=== PATIENT | female | born 1950 | race Caucasian/White ===

== ENCOUNTER → 2019-03-30 10:00 | Outpatient (BNVA) | payer MEDICARE, OTHER, SELFPAY | PROVIDERS: Family Provider Nurse Practitioner Family; PCP Nurse Practitioner Family; Visit Provider Anesthesiology | DX: G89.29 Other chronic pain (principal); M54.17 Radiculopathy, lumbosacral region; M54.16 Radiculopathy, lumbar region; M47.812 Spondylosis without myelopathy or radiculopathy, cervical region; M47.819 Spondylosis without myelopathy or radiculopathy, site unspecified; M43.22 Fusion of spine, cervical region; M79.7 Fibromyalgia; M79.651 Pain in right thigh; M79.652 Pain in left thigh; G43.709 Chronic migraine without aura, not intractable, without status migrainosus | CPT/HCPCS: 99214 ==

== ENCOUNTER → 2019-09-23 13:37 | Outpatient (BNVA) | payer MEDICARE, OTHER, SELFPAY | PROVIDERS: Family Provider Nurse Practitioner Family; PCP Nurse Practitioner Family; Visit Provider Anesthesiology | DX: G89.29 Other chronic pain (principal); M54.6 Pain in thoracic spine; M54.16 Radiculopathy, lumbar region; M54.17 Radiculopathy, lumbosacral region; M54.41 Lumbago with sciatica, right side; M47.812 Spondylosis without myelopathy or radiculopathy, cervical region; M43.22 Fusion of spine, cervical region; M47.819 Spondylosis without myelopathy or radiculopathy, site unspecified; Z79.891 Long term (current) use of opiate analgesic | CPT/HCPCS: 99214 ==

== ENCOUNTER → 2019-10-07 09:32 | Outpatient (BNVA) | payer MEDICARE, OTHER, SELFPAY | PROVIDERS: Family Provider Nurse Practitioner Family; PCP Nurse Practitioner Family; Visit Provider Anesthesiology | DX: G89.29 Other chronic pain (principal); M54.16 Radiculopathy, lumbar region; M54.6 Pain in thoracic spine; M54.17 Radiculopathy, lumbosacral region | CPT/HCPCS: 62323; J1040; J3490 ==

== ENCOUNTER → 2019-11-25 13:36 | Outpatient (BNVA) | payer MEDICARE, OTHER, SELFPAY | PROVIDERS: Family Provider Nurse Practitioner Family; PCP Nurse Practitioner Family; Visit Provider Anesthesiology | DX: G89.29 Other chronic pain (principal); M54.41 Lumbago with sciatica, right side; M54.16 Radiculopathy, lumbar region; M54.17 Radiculopathy, lumbosacral region; M47.819 Spondylosis without myelopathy or radiculopathy, site unspecified; M54.6 Pain in thoracic spine; M47.812 Spondylosis without myelopathy or radiculopathy, cervical region; M43.22 Fusion of spine, cervical region; Z79.891 Long term (current) use of opiate analgesic | CPT/HCPCS: 99214 ==

== ENCOUNTER → 2019-12-16 10:40 | Outpatient (BNVA) | payer MEDICARE, OTHER, SELFPAY | PROVIDERS: Family Provider Nurse Practitioner Family; PCP Nurse Practitioner Family; Visit Provider Anesthesiology | DX: G89.29 Other chronic pain (principal); M54.16 Radiculopathy, lumbar region; M54.17 Radiculopathy, lumbosacral region; Z79.891 Long term (current) use of opiate analgesic | CPT/HCPCS: 62323; J1040; J3490 ==

== ENCOUNTER → 2020-02-02 14:26 | Outpatient (BNVA) | payer MEDICARE, OTHER, SELFPAY | PROVIDERS: Family Provider Nurse Practitioner Family; PCP Nurse Practitioner Family; Visit Provider Anesthesiology | DX: G89.29 Other chronic pain (principal); M54.41 Lumbago with sciatica, right side; M54.6 Pain in thoracic spine; M47.812 Spondylosis without myelopathy or radiculopathy, cervical region; M54.17 Radiculopathy, lumbosacral region; M43.22 Fusion of spine, cervical region; M54.16 Radiculopathy, lumbar region; M47.819 Spondylosis without myelopathy or radiculopathy, site unspecified; Z79.891 Long term (current) use of opiate analgesic | CPT/HCPCS: 99214 ==

== ENCOUNTER → 2020-03-27 13:36 | Outpatient (BNVA) | payer MEDICARE, OTHER, SELFPAY | PROVIDERS: Family Provider Nurse Practitioner Family; PCP Nurse Practitioner Family; Visit Provider Internal Medicine Rheumatology | DX: M19.90 Unspecified osteoarthritis, unspecified site (principal); Z79.899 Other long term (current) drug therapy; Z11.1 Encounter for screening for respiratory tuberculosis; Z11.59 Encounter for screening for other viral diseases; M54.89 Other dorsalgia; M79.7 Fibromyalgia; E11.9 Type 2 diabetes mellitus without complications; M46.1 Sacroiliitis, not elsewhere classified; M19.072 Primary osteoarthritis, left ankle and foot; M77.31 Calcaneal spur, right foot; M45.9 Ankylosing spondylitis of unspecified sites in spine | CPT/HCPCS: 36415; 72170; 73130; 73630; 80076; 82306; 82565; 85025; 85651; 86140; 86480; 86704; 86803; 86812; 87340; 99214 ==

== ENCOUNTER 2020-03-27 15:51 | Outpatient (CLI) | payer MEDICARE, OTHER, SELFPAY ==
--- NOTE | 2020-03-27 16:02 | XRR_ITS ---
PROCEDURE INFORMATION: Exam: XR Right Hand Exam date and time: 03/27/2020 4:04 PM Age: 69 years old Clinical indication: Condition or disease; Osteoarthritis; Other: Not specified; Hand; Bilateral; Additional info: M19.90 - unspecified osteoarthritis, unspecified site TECHNIQUE: Imaging protocol: XR Right hand. Views: 3 or more views. COMPARISON: No relevant prior studies available. FINDINGS: Bones/joints: Mild narrowing and osteophyte formation of the interphalangeal joints, and of the 1st carpometacarpal joint. This is consistent with primary osteoarthritis. No fracture or other acute osseous abnormality. Soft tissues: The soft tissues appear unremarkable. XR/XR hand RT min 3V* [id number] IMPRESSION: Findings are consistent with primary osteoarthritis of the interphalangeal joints and the 1st carpometacarpal joint.
--- NOTE | 2020-03-27 16:02 | XRR_ITS ---
PROCEDURE INFORMATION: Exam: XR Left Foot Complete Exam date and time: 03/27/2020 4:04 PM Age: 69 years old Clinical indication: Condition or disease; Ankle and foot; Type of osteoarthritis not specified; Bilateral; Additional info: M19.90 - unspecified osteoarthritis, unspecified site TECHNIQUE: Imaging protocol: XR Left foot. Views: 3 or more views. COMPARISON: No relevant prior studies available. FINDINGS: Bones/joints: No fracture or other acute osseous abnormality. Mild narrowing and osteophyte formation of the 1st metatarsophalangeal joint, indicating mild primary osteoarthritis. The joints are otherwise unremarkable. Soft tissues: The soft tissues appear unremarkable. XR/XR foot LT min 3V* [id number] IMPRESSION: 1. Mild primary osteoarthritis of the 1st metatarsophalangeal joint. 2. The examination is otherwise unremarkable.
--- NOTE | 2020-03-27 16:02 | XRR_ITS ---
PROCEDURE INFORMATION: Exam: XR Left Hand Exam date and time: 03/27/2020 4:04 PM Age: 69 years old Clinical indication: Condition or disease; Osteoarthritis; Other: Not specified; Hand; Bilateral; Additional info: M19.90 - unspecified osteoarthritis, unspecified site TECHNIQUE: Imaging protocol: XR Left hand. Views: 3 or more views. COMPARISON: No relevant prior studies available. FINDINGS: Bones/joints: Mild narrowing and osteophyte formation of the interphalangeal joints, and of the 1st carpometacarpal joint. This is consistent with primary osteoarthritis. No fracture or other acute osseous abnormality. Soft tissues: The soft tissues appear unremarkable. XR/XR hand LT min 3V* [id number] IMPRESSION: Findings are consistent with primary osteoarthritis of the interphalangeal joints and the 1st carpometacarpal joint.
--- NOTE | 2020-03-27 16:02 | XRR_ITS ---
PROCEDURE INFORMATION: Exam: XR Pelvis Exam date and time: 03/27/2020 4:04 PM Age: 69 years old Clinical indication: Condition or disease; Other: Osteoarthritis; Additional info: M19.90 - unspecified osteoarthritis, unspecified site TECHNIQUE: Imaging protocol: XR pelvis. Views: 1 or 2 view. COMPARISON: CR Hip 2-3v RIGHT wwo Pelv* [id number] 12/31/2018 3:09 PM FINDINGS: Bones/joints: Mild narrowing and sclerosis of the right SI joint. The left SI joint is unremarkable. Mild osteoarthritis of the right SI joint. The left SI joint appears unaffected. Bilateral hip joints are symmetric. No joint narrowing or osteophyte formation noted. The symphysis pubis is unremarkable. No fracture or other acute osseous abnormality. Soft tissues: The soft tissues appear unremarkable. XR/XR pelvis 1-2V* [id number] IMPRESSION: 1. Mild osteoarthritis of the right SI joint. The left SI joint appears unaffected. 2. The examination is otherwise unremarkable.
--- NOTE | 2020-03-27 16:02 | XRR_ITS ---
PROCEDURE INFORMATION: Exam: XR Right Foot Complete Exam date and time: 03/27/2020 4:04 PM Age: 69 years old Clinical indication: Condition or disease; Ankle and foot; Type of osteoarthritis not specified; Bilateral; Additional info: M19.90 - unspecified osteoarthritis, unspecified site TECHNIQUE: Imaging protocol: XR Right foot. Views: 3 or more views. COMPARISON: No relevant prior studies available. FINDINGS: Bones/joints: 5 mm plantar calcaneal spur. Small calcified enthesophyte in the distal Achilles tendon. No fracture or other acute osseous abnormality. No acute or chronic joint abnormality demonstrated. Impression Soft tissues: The soft tissues appear unremarkable. XR/XR foot RT min 3V* [id number] IMPRESSION: 1. 5 mm plantar calcaneal spur. 2. Small calcified enthesophyte in the distal Achilles tendon. 3. No significant abnormality of the joints.
[2020-03-27 16:54] LABS: Basophils # 0.1 10^3/uL (0.0-0.1); Basophils % 1.2 %; Eosinophils # 0.1 10^3/uL (0.0-0.8); Eosinophils % 1.8 %; Hematocrit 35.5 % (37.0-47.0); Hemoglobin 11.3 g/dL (11.5-15.3); Lymphocytes # 2.3 10^3/uL (0.8-4.8); Lymphocytes % 31.7 %; Mean Corpuscular HGB Conc 31.8 g/dL (30.0-36.0); Mean Corpuscular Hemoglobin 30.1 pg (28.0-34.0); Mean Corpuscular Volume 94.7 fL (81-99); Mean Platelet Volume 9.9 fL (7.4-10.4); Monocytes # 0.7 10^3/uL (0.2-0.9); Monocytes % 9.5 %; Neutrophils # 4.07 10^3/uL (1.8-7.7); Neutrophils % 55.5 %; Nucleated Red Blood Cells % 0 %; Platelet Count 349 10^3/cmm (130-400); Red Blood Count 3.75 10^6/uL (4.1-5.3); Red Cell Distribution Width 14.5 % (12.1-15.1); White Blood Count 7.3 10^3/uL (4.0-10.0)
[2020-03-27 17:51] LABS: Hepatitis B Core AB, Total Non-Reactive (Nonreactive); Hepatitis B Surface Antigen Non-Reactive (Nonreactive); Hepatitis C Virus Antibody Non-Reactive (Nonreactive)
[2020-03-27 17:55] LABS: Erythrocyte Sedimentation Rate 45 mm/hr (0-15)
[2020-03-27 21:10] LABS: Alanine Aminotransferase 24 U/L (0-33); Albumin Level 4.1 g/dL (3.5-5.2); Alkaline Phosphatase 67 IU/L (35-105); Aspartate Amino Transferase 17 U/L (0-32); C Reactive Protein 8.9 mg/L (0.0-4.9); Globulin 2.6 g/dL (1.3-4.6); Total Bilirubin 0.2 mg/dL (0.15-1.2); Total Protein 6.7 g/dL (6.6-8.7)
[2020-03-28 01:23] LABS: 25 Hydroxy Vitamin D 31 ng/mL (30-100)
[2020-03-28 15:38] LABS: Cyclic Citrullinated Peptide <16 UNITS
[2020-03-29 14:54] LABS: Quantiferon Mitogen >10.00 IU/mL; Quantiferon Nil 0.11 IU/mL; Quantiferon Plus TB1 <0.00 IU/mL; Quantiferon Plus TB2 <0.00 IU/mL; Quantiferon TB Gold NEGATIVE (NEGATIVE)
[2020-03-30 17:23] LABS: HLA-B27 POSITIVE (NEGATIVE)
== END 2020-03-27 15:52 | disposition home or self-care (01) ==
LOC: RAD 15:57
PROVIDERS: Family Provider Nurse Practitioner Family; PCP Nurse Practitioner Family; Visit Provider Internal Medicine Rheumatology
DX: Z79.899 Other long term (current) drug therapy (principal); M46.1 Sacroiliitis, not elsewhere classified; M19.072 Primary osteoarthritis, left ankle and foot; M77.31 Calcaneal spur, right foot
CPT/HCPCS: 36415; 72170; 73130; 73630; 80076; 82306; 82565; 85025; 85651; 86140; 86480; 86704; 86803; 86812; 87340

== ENCOUNTER → 2020-03-31 14:09 | Outpatient (BNVA) | payer MEDICARE, OTHER, SELFPAY | PROVIDERS: Family Provider Nurse Practitioner Family; PCP Nurse Practitioner Family; Visit Provider Anesthesiology | DX: G89.29 Other chronic pain (principal); M54.6 Pain in thoracic spine; M54.17 Radiculopathy, lumbosacral region; M54.16 Radiculopathy, lumbar region; M47.819 Spondylosis without myelopathy or radiculopathy, site unspecified; Z79.891 Long term (current) use of opiate analgesic | CPT/HCPCS: 99213 ==

== ENCOUNTER → 2020-04-20 14:23 | Outpatient (BNVA) | payer MEDICARE, OTHER, SELFPAY | PROVIDERS: Family Provider Nurse Practitioner Family; PCP Nurse Practitioner Family; Visit Provider Internal Medicine Rheumatology | DX: M45.9 Ankylosing spondylitis of unspecified sites in spine (principal); Z15.89 Genetic susceptibility to other disease; M19.90 Unspecified osteoarthritis, unspecified site; M54.89 Other dorsalgia; M46.1 Sacroiliitis, not elsewhere classified; E11.9 Type 2 diabetes mellitus without complications; Z79.84 Long term (current) use of oral hypoglycemic drugs; Z79.899 Other long term (current) drug therapy | CPT/HCPCS: 99214 ==

== ENCOUNTER 2020-05-11 16:23 | Outpatient (CLI) | payer MEDICARE, OTHER, SELFPAY ==
--- NOTE | 2020-05-11 16:38 | MR_ITS ---
WS: [id number] INDICATION: Sacroiliitis TECHNIQUE: MR of the sacrum without gadolinium enhancement. Sagittal T2, coronal T2, coronal STIR axi al T1 and T2 sagittal T1 fat sat FINDINGS: MR of the sacrum without gadolinium enhancement. Normal bone marrow signal in the lower lum bar spine and sacrum. Grade 1 anterolisthesis L4 on L5 is stable. Normal bone marrow signal in the sa rip and sacral ala bilaterally. No insufficiency fractures. Mild degenerative arthritis both sacroil iac joints right greater than left. No periarticular edema. No evidence of acute sacroiliitis. Advanced facet arthropathy in the lower lumbar spine. Normal visualized exiting sacral nerve roots. P artially visualized hips demonstrate normal bone marrow signal. Mild to moderate degenerative arthrit is both hips with joint space narrowing. Normal visualized soft tissues. MR/MR sacrum wo con* [id number] IMPRESSION: 1. Normal bone marrow signal in the lower lumbar spine and sacrum. 2. Mild degenerative arthritis right greater than left sacroiliac joints. No p eriarticular edema. 3. No evidence of acute sacroiliitis. 4. Stable grade 1 anterolisthesis L4 on L5. 5. A few incidental Tarlov cysts in the sacrum. 6. Normal sacrococcygeal junction.
== END 2020-05-11 16:24 | disposition home or self-care (01) ==
LOC: RADSHAW 16:27
PROVIDERS: PCP Nurse Practitioner Family; Visit Provider Internal Medicine Rheumatology
DX: Z15.89 Genetic susceptibility to other disease (principal); M46.1 Sacroiliitis, not elsewhere classified; G96.191 Perineural cyst; M47.898 Other spondylosis, sacral and sacrococcygeal region
CPT/HCPCS: 72148

== ENCOUNTER → 2020-05-18 11:00 | Outpatient (BNVA) | payer MEDICARE, OTHER, SELFPAY | PROVIDERS: PCP Nurse Practitioner Family; Visit Provider Surgery | DX: D64.9 Anemia, unspecified (principal); Z86.010 Personal history of colon polyps; Z11.52 Encounter for screening for COVID-19 | CPT/HCPCS: 87635 ==

== ENCOUNTER 2020-05-23 07:16 | Day surgery (SDC) | payer MEDICARE, OTHER, SELFPAY ==
[2020-05-19 13:15] VITALS: BMI 37.1
[2020-05-23 07:33] VITALS: BP 186/99; PULSE 81; RESP 18; TEMP 36.9; O2SAT 98
--- NOTE | 2020-05-23 07:37 | ANES.PREANE2 ---
Pre-Anesthetic Assessment Pre-Anesthetic Assessment: Height/Weight: Height 1.57 m Weight 92.079 kg Temp Pulse Resp BP Pulse Ox 98.4 F 81 18 186/99 98 05/23/20 07:33 05/23/20 07:33 05/23/20 07:33 05/23/20 07:33 05/23/20 07:33 Preop Diagnosis: panendoscopy Proposed Procedure: Operation Date: 05/23/20 08:30 Proposed Procedures p EGD/colon 42763 41213 D64.9 Z86.010(Not Applicable) - Gregorio Lynn MD s Colonoscopy(Not Applicable) - Gregorio Lynn MD Was Beta Kristina taken within 24 hours: Yes Last intake: Intake Last Liquid Date 05/22/20 Last Liquid Time 17:00 Last Solid Date 05/21/20 Last Solid Time 20:00 Social: Social History: No alcohol and No tobacco Exam: Pre-Anes Outpt Exam: alert, oriented x 3, clear to auscultation bilaterally and regular rate & rhythm Airway: Submandibular: WNL Cervical ROM: WNL MP: 2 Dentition: False Pulmonary: Pulmonary: Asthma CV/HEM: CV/HEM: CAD and HTN : : None reported Hepatic: Hepatic: None reported GI: GI: GERD Metabolic: Metabolic: None reported Musc/skel: Musc/skel: None reported Neuropsych: Comments: Migraine JAMISON's Anesthetic Plan: ASA status: 3 Anesthesia: MAC PFSH Anesthesia PFSH: Medical History (Updated 05/09/20 @ 17:27 by Gregorio Lynn MD) Ankylosing spondylitis Back pain, lumbosacral CAD (coronary artery disease) Chronic migraine Chronic radicular low back pain Depression Diabetes mellitus Dyslipidemia Essential hypertension Facet joint disease of cervical region Fibromyalgia Fusion of spine, cervical region Hip pain, right History of acute anterior wall myocardial infarction HLA B27 (HLA B27 positive) Inflammatory arthritis Joint instability Lumbosacral radiculopathy Sacroiliitis Surgical History (Updated 05/09/20 @ 14:42 by Gregorio Lynn MD) H/O esophagogastroduodenoscopy History of colonoscopy (~2012) Presence of stent in anterior descending branch of left coronary artery S/p bilateral carpal tunnel release S/P cervical spinal fusion c4-c5, c5-c6-08/29/2009 S/P cholecystectomy S/P discectomy S/P hysterectomy Family History Father Cancer Hypertension Diabetes Sister Cancer Social History Smoking and tobacco status: never smoked Second hand smoke exposure: No Alcohol intake: never Marital status: / History of recent travel: No Data Anesthesia Cardiac Studies: No Data to Display
[2020-05-23] MEDS: sodium chloride 0.9% 1,000 ML 30 ML IV (07:56)
[2020-05-23 08:06] LABS: Glucose Point of Care 166 mg/dL (70-110)
--- NOTE | 2020-05-23 08:54 | W.PM.OPSUD ---
Surgery/Procedure H&P Update DATE OF PROCEDURE: May 23, 2020 DATE H&P PERFORMED: 05/09/20 H&P UPDATE INFORMATION: I have reviewed H&P completed within last 30 days, I have examined patient prior to procedure and No changes to prior documentation PREOP DIAGNOSIS: panendoscopy PLANNED PROCEDURE: Operation Date: 05/23/20 08:30 Proposed Procedures p EGD/colon 12645 05934 D64.9 Z86.010(Not Applicable) - Gregorio Lynn MD s Colonoscopy(Not Applicable) - Gregorio Lynn MD
[2020-05-23 09:34] VITALS: BP 93/57; PULSE 74; RESP 18; TEMP 36.3; O2SAT 94
[2020-05-23 09:52] VITALS: BP 131/81; PULSE 74; RESP 18; TEMP 36.2; O2SAT 100
--- NOTE | 2020-05-23 10:23 | P.PCN_ITS ---
PACU note Post-Anesthesia Exam: awake Disposition: discharged
--- NOTE | 2020-05-23 10:23 | PM.PACU ---
PACU note Post-Anesthesia Exam: awake Disposition: discharged
== END 2020-05-23 10:22 | disposition home or self-care (01) ==
PROVIDERS: PCP Nurse Practitioner Family; Visit Provider Surgery
PROC: 0DJ08ZZ Inspection of Upper Intestinal Tract, Via Natural or Artificial Opening Endoscopic (ICD-10-PCS; CPT 43235; principal; 2020-05-23 08:30)
PROC: 0DJD8ZZ Inspection of Lower Intestinal Tract, Via Natural or Artificial Opening Endoscopic (ICD-10-PCS; CPT 45378; 2020-05-23 08:30)
DX: D50.9 Iron deficiency anemia, unspecified (principal); D12.2 Benign neoplasm of ascending colon; D12.4 Benign neoplasm of descending colon; D12.3 Benign neoplasm of transverse colon; D12.0 Benign neoplasm of cecum; K57.30 Diverticulosis of large intestine without perforation or abscess without bleeding; K44.9 Diaphragmatic hernia without obstruction or gangrene; K29.70 Gastritis, unspecified, without bleeding; K20.90 Esophagitis, unspecified without bleeding; K21.9 Gastro-esophageal reflux disease without esophagitis; R11.0 Nausea; I25.10 Atherosclerotic heart disease of native coronary artery without angina pectoris; E11.9 Type 2 diabetes mellitus without complications; E78.5 Hyperlipidemia, unspecified; I10 Essential (primary) hypertension; M79.7 Fibromyalgia; Z98.1 Arthrodesis status; Z83.3 Family history of diabetes mellitus; Z82.49 Family history of ischemic heart disease and other diseases of the circulatory system
CPT/HCPCS: 36416; 43235; 45380; 45385; 82962; 88305; 96360; 96361; J2704; J3490; J7030

== ENCOUNTER → 2020-05-24 13:54 | Outpatient (BNVA) | payer MEDICARE, OTHER, SELFPAY | PROVIDERS: PCP Nurse Practitioner Family; Visit Provider Nurse Practitioner | DX: G89.29 Other chronic pain (principal); M54.89 Other dorsalgia; M79.604 Pain in right leg; M79.605 Pain in left leg; M47.812 Spondylosis without myelopathy or radiculopathy, cervical region; M54.17 Radiculopathy, lumbosacral region; M79.7 Fibromyalgia; M54.16 Radiculopathy, lumbar region; M43.22 Fusion of spine, cervical region; M47.819 Spondylosis without myelopathy or radiculopathy, site unspecified; Z79.891 Long term (current) use of opiate analgesic | CPT/HCPCS: 99212 ==

== ENCOUNTER → 2020-05-25 10:18 | Outpatient (BNVA) | payer MEDICARE, OTHER, SELFPAY | PROVIDERS: PCP Nurse Practitioner Family; Visit Provider Internal Medicine Rheumatology | DX: M45.9 Ankylosing spondylitis of unspecified sites in spine (principal); Z79.899 Other long term (current) drug therapy | CPT/HCPCS: 36415; 80076; 82565; 85025; 86140 ==

== ENCOUNTER → 2020-06-22 13:59 | Outpatient (BNVA) | payer MEDICARE, OTHER, SELFPAY | PROVIDERS: PCP Nurse Practitioner Family; Visit Provider Internal Medicine Rheumatology | DX: M19.90 Unspecified osteoarthritis, unspecified site (principal); Z79.899 Other long term (current) drug therapy; Z15.89 Genetic susceptibility to other disease; M45.9 Ankylosing spondylitis of unspecified sites in spine; M46.1 Sacroiliitis, not elsewhere classified; M54.89 Other dorsalgia; E11.9 Type 2 diabetes mellitus without complications | CPT/HCPCS: 99214 ==

== ENCOUNTER → 2020-07-26 13:19 | Outpatient (BNVA) | payer MEDICARE, OTHER, SELFPAY | PROVIDERS: PCP Nurse Practitioner Family; Visit Provider Nurse Practitioner | DX: M54.89 Other dorsalgia (principal); M54.17 Radiculopathy, lumbosacral region; M47.812 Spondylosis without myelopathy or radiculopathy, cervical region; M79.604 Pain in right leg; M79.605 Pain in left leg; M45.9 Ankylosing spondylitis of unspecified sites in spine; M19.90 Unspecified osteoarthritis, unspecified site; M79.7 Fibromyalgia; Z79.891 Long term (current) use of opiate analgesic | CPT/HCPCS: 99213 ==

== ENCOUNTER → 2020-08-17 09:39 | Outpatient (BNVA) | payer MEDICARE, OTHER, SELFPAY | PROVIDERS: PCP Nurse Practitioner Family; Visit Provider Anesthesiology | DX: G89.29 Other chronic pain (principal); M54.16 Radiculopathy, lumbar region; M54.17 Radiculopathy, lumbosacral region; E11.9 Type 2 diabetes mellitus without complications; M54.89 Other dorsalgia | CPT/HCPCS: 62323; J1040; J3490 ==

== ENCOUNTER → 2020-10-18 14:27 | Outpatient (BNVA) | payer MEDICARE, OTHER, SELFPAY | PROVIDERS: PCP Nurse Practitioner Family; Visit Provider Internal Medicine Rheumatology | DX: M45.9 Ankylosing spondylitis of unspecified sites in spine (principal); Z15.89 Genetic susceptibility to other disease; Z79.899 Other long term (current) drug therapy; M54.89 Other dorsalgia; M19.90 Unspecified osteoarthritis, unspecified site; E11.9 Type 2 diabetes mellitus without complications; Z98.890 Other specified postprocedural states; Z71.89 Other specified counseling | CPT/HCPCS: 99214 ==

== ENCOUNTER → 2020-10-25 13:37 | Outpatient (BNVA) | payer MEDICARE, OTHER, SELFPAY | PROVIDERS: PCP Nurse Practitioner Family; Visit Provider Nurse Practitioner | DX: G89.29 Other chronic pain (principal); M54.89 Other dorsalgia; M54.16 Radiculopathy, lumbar region; M54.17 Radiculopathy, lumbosacral region; M79.604 Pain in right leg; M79.605 Pain in left leg; M47.812 Spondylosis without myelopathy or radiculopathy, cervical region; M43.22 Fusion of spine, cervical region; M45.9 Ankylosing spondylitis of unspecified sites in spine; M19.90 Unspecified osteoarthritis, unspecified site; G43.709 Chronic migraine without aura, not intractable, without status migrainosus; Z79.891 Long term (current) use of opiate analgesic | CPT/HCPCS: 80076; 82565; 85025; 86140; 99213 ==

== ENCOUNTER 2020-10-27 13:21 | Outpatient (CLI) | payer MEDICARE, OTHER, SELFPAY ==
--- NOTE | 2020-10-27 13:30 | USCV_ITS ---
Kelin Mcmanus Age: 69 Gender: F : 1950 Exam Date: 10/27/2020 13:48 Ordering Phys: Modesto Drake M.D ([email or web address]) Technologist: Deidra Sheppard Exam Location: [facility] [place] Indication: CHEST PAIN BP: 138 / 86 HR: 88 Rhythm: Sinus Technical Quality: Adequate MEASUREMENTS (Male / Female) Normal Values 2D ECHO LV Diastolic Diameter PLAX 4.3 cm 4.2 - 5.9 / 3.9 - 5.3 cm LV Systolic Diameter PLAX 3.0 cm LV Chamber Size 3.0 cm IVS Diastolic Thickness 1.2 cm 0.6 - 1.0 / 0.6 - 0.9 cm IVS Systolic Thickness 1.5 cm LVPW Diastolic Thickness 1.5 cm 0.6 - 1.0 / 0.6 - 0.9 cm LVPW Systolic Thickness 2.0 cm RV Chamber Size 2.4 cm LVOT Diameter 2.1 cm LV Ejection Fraction 2D Teich 58.0 % LV Ejection Fraction MOD 2C 81.0 % LV Ejection Fraction 2C AL 82.1 % LA Diameter 3.5 cm LA Width 3.1 cm LA Height 3.3 cm RA Width 2.2 cm RA Height 4.0 cm Aorta at Sinotubular Diameter 2.9 cm M-MODE Aortic Annulus Diameter 3.3 cm LA Ao Ratio MM 1.2 MV E Point Septal Separation 0.2 cm DOPPLER AV Peak Velocity 211.0 cm/s LVOT Peak Velocity 101.0 cm/s AV Area Cont Eq vti 2.0 cm squared AV Area Cont Eq pk 1.7 cm squared MV Area PHT 5.0 cm squared Mitral E to A Ratio 0.7 MV E' Velocity 53.0 cm/s Mitral E to MV E' Ratio 11.5 Mitral E to LV E' Lateral Ratio 10.8 Mitral E to LV E' Septal Ratio 12.2 TR Peak Velocity 103.3 cm/s TR Peak Gradient 4.3 mmHg TR Mean Velocity 91.2 cm/s TR Mean Gradient 3.3 mmHg TR Velocity Time Integral 26.6 cm TV Peak E Velocity 65.0 cm/s Right Atrial Pressure 3.0 mmHg Pulmonary Artery Systolic Pressu 7.3 mmHg PV Peak Velocity 97.0 cm/s RV Acceleration Time 0.1 s RV Ejection Time 0.4 s RV AcT/ET 0.2 FINDINGS Left Ventricle Normal left ventricular size. LV systolic function is normal with EF of 60-65%. No regional wall motion abnormalities. Grade 1 diastolic dysfunction Right Ventricle The right ventricle is normal in size and function. Right ventricular hypertrophy is noted Right Atrium The right atrium is normal in size. Left Atrium The left atrium is normal in size. Mitral Valve Mitral valve is thickened and calcified without significant stenosis or prolapse. There is trace mitral regurgitation. Aortic Valve Grossly normal without significant sclerosis or stenosis. There is no aortic regurgitation. Tricuspid Valve Structurally normal tricuspid valve without significant stenosis or regurgitation. Insufficient TR jet to calculate RVSP Pulmonic Valve Structurally normal pulmonic valve without significant stenosis. There is no pulmonic regurgitation. Pericardium Normal pericardium without effusion. Aorta Normal ascending aorta dimension. CONCLUSIONS LV systolic function is normal with EF of 60-65% Grade 1 diastolic dysfunction Trace mitral regurgitation Compared to prior echocardiogram from 09/2015, no significant changes are noted Modesto Drake MD (Electronically Signed) Final Date: 12 November 2020 19:14 S
== END 2020-10-27 13:22 | disposition home or self-care (01) ==
LOC: US 13:23
PROVIDERS: PCP Nurse Practitioner Family; Visit Provider Internal Medicine
DX: R07.9 Chest pain, unspecified (principal); I51.81 Takotsubo syndrome; I34.0 Nonrheumatic mitral (valve) insufficiency
CPT/HCPCS: 93306

== ENCOUNTER 2020-11-16 08:22 | Outpatient (CLI) | payer MEDICARE, OTHER, SELFPAY ==
[2020-11-16 08:39] VITALS: BMI 35.6
--- NOTE | 2020-11-16 08:39 | ECG_ITS ---
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 Interpretive Statements NAME OF STUDY: LEXISCAN SESTAMIBI STRESS TEST INDICATION: [Chest Pain, ] Procedure: At the baseline, the blood pressure was 148/87mmHg with a heart rate of 87 bpm. The electrocardiogram showed normal sinus rhythm, normal axis with normal ST and T's. The Lexiscan was infused over a period of 20 seconds. A total of 0.4 mg of Lexiscan was infused. The stress phase was continued for a total of 5 minutes. Heart rate was at the end of stress phase was 94 bpm and a blood pressure of 144/78 mmHg. The EKG at the peak infusion revealed since normal sinus rhythm with no significant ST-T wave changes. Sestamibi was injected 20 seconds after the Lexiscan infusion. Blood pressure at the end of recovery phase was 148/81 mmHg with a heart rate of 89 bpm. Conclusion: 1. Normal EKG response to Lexiscan infusion 2. No Lexiscan induced chest pain or cardiac arrhythmia. 3. Normal blood pressure and heart rate response. 4. Sestamibi/sestamibi perfusion scan pending; see separate report. Electronically Signed On 11-26-2020 12:19:18 CDT by Modesto Drake M.D. [id number]
--- NOTE | 2020-11-16 08:40 | NMCV_ITS ---
NM bud perf SPECT r/s* [id number] Kelin Mcmanus Age: 70 Gender: F : 1950 Exam Date: 11/16/2020 09:37 Ordering Phys: Modesto Drake M.D ([email or web address]) Technologist: REZA Garcia Exam Location: [facility] Indications: CHEST PAIN STRESS TEST Please see separate stress test report in [facility] for full findings IMAGE PROTOCOL Rest/Stress 1 Lexiscan Day Radiopharmaceutical Dose (mCi) Administration Site Administered by Rest: Tc-99m 10.7 IV REZA Grimaldo Sestamibi Stress:Tc-99m 32.4 IV REZA Grimaldo Sestamibi Rest: 16-Nov-2020 60 Discovery 630 Stress: 16-Nov-2020 30 Discovery 630 0.4mg Lexiscan. Images obtained in supine and prone position. SPECT RESULTS Technical Quality: Excellent Raw Data Analysis: Normal Image Corrections: No attenuation or motion correction applied Summed Stress Score: 2 Summed Rest Score: 4 Summed Difference Score: 0 PERFUSION FINDINGS There is a small sized, fixed perfusion defect in the apical wall. This likely represents prior infarct. FUNCTIONAL RESULTS (calculated via Gated SPECT) Stress Image LV EF (%): 72 Stress EDV (mL):81 TID: 1.14 Stress ESV (mL):23 FUNCTIONAL FINDINGS: There is normal left ventricular systolic function. IMPRESSIONS 1. Abnormal myocardial perfusion imaging with prior infarct noted in the apical wall. No evidence of ishchemia is noted 2. LV systolic function is normal Modesto Drake MD (Electronically Signed) Final Date: 18 November 2020 15:07 S
[2020-11-16 10:22] VITALS: BP 135/84; PULSE 91
== END 2020-11-16 08:23 | disposition home or self-care (01) ==
PROVIDERS: PCP Nurse Practitioner Family; Visit Provider Internal Medicine
DX: R07.9 Chest pain, unspecified (principal)
CPT/HCPCS: 78452; 93017; A9500

== ENCOUNTER → 2020-12-19 13:06 | Outpatient (BNVA) | payer MEDICARE, OTHER, SELFPAY | PROVIDERS: PCP Nurse Practitioner Family; Visit Provider Nurse Practitioner | DX: G89.29 Other chronic pain (principal); M54.40 Lumbago with sciatica, unspecified side; M54.16 Radiculopathy, lumbar region; M54.17 Radiculopathy, lumbosacral region; M54.89 Other dorsalgia; M47.812 Spondylosis without myelopathy or radiculopathy, cervical region; M43.22 Fusion of spine, cervical region; M45.9 Ankylosing spondylitis of unspecified sites in spine; Z79.891 Long term (current) use of opiate analgesic | CPT/HCPCS: 99214 ==

== ENCOUNTER → 2021-01-04 09:49 | Outpatient (BNVA) | payer MEDICARE, OTHER, SELFPAY | PROVIDERS: PCP Nurse Practitioner Family; Visit Provider Anesthesiology | DX: G89.29 Other chronic pain (principal); M51.16 Intervertebral disc disorders with radiculopathy, lumbar region; M54.89 Other dorsalgia | CPT/HCPCS: 62323; J1040; J3490 ==

== ENCOUNTER → 2021-04-04 08:43 | Outpatient (BNVA) | payer MEDICARE, OTHER, SELFPAY | PROVIDERS: PCP Nurse Practitioner Family; Visit Provider Anesthesiology | DX: G89.29 Other chronic pain (principal); M54.16 Radiculopathy, lumbar region; M54.17 Radiculopathy, lumbosacral region; M47.819 Spondylosis without myelopathy or radiculopathy, site unspecified; M79.604 Pain in right leg; M79.605 Pain in left leg; M43.22 Fusion of spine, cervical region; M47.812 Spondylosis without myelopathy or radiculopathy, cervical region; M54.6 Pain in thoracic spine; M45.9 Ankylosing spondylitis of unspecified sites in spine; Z15.89 Genetic susceptibility to other disease; Z79.899 Other long term (current) drug therapy; Z79.891 Long term (current) use of opiate analgesic | CPT/HCPCS: 99214 ==

== ENCOUNTER → 2021-05-03 13:47 | Outpatient (BNVA) | payer MEDICARE, OTHER, SELFPAY | PROVIDERS: PCP Nurse Practitioner Family; Visit Provider Anesthesiology Pain Medicine | DX: M79.18 Myalgia, other site (principal); M47.812 Spondylosis without myelopathy or radiculopathy, cervical region; M53.3 Sacrococcygeal disorders, not elsewhere classified; M19.90 Unspecified osteoarthritis, unspecified site; M45.9 Ankylosing spondylitis of unspecified sites in spine; M54.6 Pain in thoracic spine; Z15.89 Genetic susceptibility to other disease; Z79.899 Other long term (current) drug therapy; Z79.891 Long term (current) use of opiate analgesic | CPT/HCPCS: 20553; 99205; J1030; J3490 ==

== ENCOUNTER → 2021-05-21 12:57 | Outpatient (BNVA) | payer MEDICARE, OTHER, SELFPAY | PROVIDERS: PCP Nurse Practitioner Family; Visit Provider Internal Medicine Rheumatology | DX: M45.9 Ankylosing spondylitis of unspecified sites in spine (principal); Z15.89 Genetic susceptibility to other disease; M19.90 Unspecified osteoarthritis, unspecified site; E11.9 Type 2 diabetes mellitus without complications; Z79.899 Other long term (current) drug therapy; Z71.89 Other specified counseling | CPT/HCPCS: 99214 ==

== ENCOUNTER → 2021-06-07 10:19 | Outpatient (BNVA) | payer MEDICARE, OTHER, SELFPAY | PROVIDERS: PCP Nurse Practitioner Family; Visit Provider Anesthesiology Pain Medicine | DX: M79.604 Pain in right leg (principal); M79.605 Pain in left leg; M47.812 Spondylosis without myelopathy or radiculopathy, cervical region; M54.6 Pain in thoracic spine; M53.3 Sacrococcygeal disorders, not elsewhere classified; M19.90 Unspecified osteoarthritis, unspecified site; M45.9 Ankylosing spondylitis of unspecified sites in spine; Z15.89 Genetic susceptibility to other disease; Z79.899 Other long term (current) drug therapy; Z79.891 Long term (current) use of opiate analgesic | CPT/HCPCS: 99214 ==

== ENCOUNTER 2021-06-20 16:27 | Outpatient (CLI) | payer MEDICARE, OTHER, SELFPAY ==
--- NOTE | 2021-06-20 16:45 | MR_ITS ---
WS: [id number] MRI LUMBAR SPINE NONCONTRAST HISTORY: Chronic low back pain. Stenosis radiating to RIGHT leg. COMPARISON: 08/21/2018 TECHNIQUE: Sagittal and axial multisequence imaging is submitted. Prior anterior cervical fusion from C4 through C6. Thoracolumbar scoliosis. Curvature of the lumbar spine. Slight increase in the lordosis. L4 anterolisthesis by 5 mm. Mild disc space narrowing throughout but greatest at L4-5. No fracture or marrow edema. Conus terminates normally at L1. L1-L2: Very mild annular disc bulging. No significant stenosis. Mild ligamentum flavum hypertrophy. L2-L3: Moderate annular disc bulging with mild ligamentum flavum and facet arthritis. There is encroa chment and flattening of the ventral thecal sac. Mild central and bilateral subarticular recess encro achment. Mild progression since the prior study. L3-L4: Diffuse annular disc bulging with mild osteophytic ridging. Focal disc protrusion RIGHT forame n with effacement of fat and contact on the exiting RIGHT L3 nerve root. Moderate central and bilater al subarticular recess stenosis. Slightly greater encroachment upon the RIGHT L4 nerve root. Moderate to severe RIGHT foraminal stenosis and mild on the LEFT. L4-L5: Diffuse annular disc bulging exacerbated by anterolisthesis of L4. Severe ligamentum flavum an d facet arthritis. Severe central and bilateral subarticular recess stenosis. Mild stenosis of the fo ramen. There is significant contact and encroachment upon the L5 nerve roots. L5-S1: Mild annular disc bulge. No significant stenosis. Visualized retroperitoneum is negative. MR/MR lumbar spine wo con* [id number] IMPRESSION: 1. Mild progression of degenerative changes and stenosis throughout the lumbar spine since 08/21/2018. 2. Grade 1 anterolisthesis of L4 is stable. 3. Severe central and bilateral subarticular recess stenosis at L4-5 with mild foraminal stenosis is multifactorial. 4. Moderate central and bilateral subarticular recess stenosis at L3-4. 5. Moderate to severe RIGHT foraminal stenosis at L3-4 with a RIGHT foraminal disc protrusion contacting the L3 nerve root. 6. Mild central and bilateral subarticular recess stenosis at L2-3.
== END 2021-06-20 16:28 | disposition home or self-care (01) ==
PROVIDERS: PCP Nurse Practitioner Family; Visit Provider Anesthesiology Pain Medicine
DX: M48.062 Spinal stenosis, lumbar region with neurogenic claudication (principal)
CPT/HCPCS: 72148

== ENCOUNTER → 2021-07-05 14:22 | Outpatient (BNVA) | payer MEDICARE, OTHER, SELFPAY | PROVIDERS: PCP Nurse Practitioner Family; Visit Provider Anesthesiology Pain Medicine | DX: M48.062 Spinal stenosis, lumbar region with neurogenic claudication (principal); M79.604 Pain in right leg; M79.605 Pain in left leg; M47.812 Spondylosis without myelopathy or radiculopathy, cervical region; M53.3 Sacrococcygeal disorders, not elsewhere classified; M19.90 Unspecified osteoarthritis, unspecified site; M45.9 Ankylosing spondylitis of unspecified sites in spine; M54.6 Pain in thoracic spine; Z15.89 Genetic susceptibility to other disease; Z79.899 Other long term (current) drug therapy; Z79.891 Long term (current) use of opiate analgesic | CPT/HCPCS: 99215 ==

== ENCOUNTER → 2021-07-12 12:41 | Outpatient (BNVA) | payer MEDICARE, OTHER, SELFPAY | PROVIDERS: PCP Nurse Practitioner Family; Visit Provider Anesthesiology Pain Medicine | DX: M54.16 Radiculopathy, lumbar region (principal); M54.89 Other dorsalgia; E11.9 Type 2 diabetes mellitus without complications; Z79.891 Long term (current) use of opiate analgesic | CPT/HCPCS: 36416; 64483; 64484; 82962; J1100; J3490 ==

== ENCOUNTER → 2021-07-24 10:58 | Outpatient (BNVA) | payer MEDICARE, OTHER, SELFPAY | PROVIDERS: PCP Nurse Practitioner Family; Referring Provider Anesthesiology Pain Medicine; Visit Provider Orthopaedic Surgery | DX: M43.16 Spondylolisthesis, lumbar region (principal); M47.816 Spondylosis without myelopathy or radiculopathy, lumbar region; M48.061 Spinal stenosis, lumbar region without neurogenic claudication | CPT/HCPCS: 72100; 99204 ==

== ENCOUNTER → 2021-08-06 08:56 | Outpatient (BNVA) | payer MEDICARE, OTHER, SELFPAY | PROVIDERS: PCP Nurse Practitioner Family; Visit Provider Anesthesiology Pain Medicine | DX: M54.6 Pain in thoracic spine (principal); M54.50 Low back pain, unspecified; M53.3 Sacrococcygeal disorders, not elsewhere classified; M19.90 Unspecified osteoarthritis, unspecified site; M47.812 Spondylosis without myelopathy or radiculopathy, cervical region; M79.604 Pain in right leg; M79.605 Pain in left leg; Z15.89 Genetic susceptibility to other disease; Z79.899 Other long term (current) drug therapy; Z79.891 Long term (current) use of opiate analgesic | CPT/HCPCS: 99213 ==

== ENCOUNTER 2021-08-08 07:06 | Day surgery (SDC) | payer MEDICARE, OTHER, SELFPAY ==
[2021-08-06 10:55] VITALS: BMI 36.8
--- NOTE | 2021-08-06 11:02 | ECG_ITS ---
[facility] Test Date: 2021-08-06 Pat Name: Kelin Mcmanus Department: Room: Gender: Female Research Associate Policy: : 1950 Requested By: Maddy Blank Order Number: [id number] Danitza MD: Modesto Drake M.D. Measurements Intervals [place] Rate: 71 P: 66 PA: 208 QRS: -3 QRSD: 88 T: 16 QT: 426 QTc: 463 Interpretive Statements SINUS RHYTHM LOW QRS VOLTAGE IN PRECORDIAL LEADS [QRS DEFLECTION < 1.0 mV IN CHEST LEADS] POSSIBLE ANTERIOR MYOCARDIAL INFARCTION , OF INDETERMINATE AGE [30 ms Q WAVE IN V3/V4, OR R < 0.2 mV IN V4] Compared to ECG 02/07/2019 09:11:06 No significant changes Electronically Signed On 08-06-2021 17:28:08 CDT by Modesto Drake M.D. [id number]
--- NOTE | 2021-08-06 14:02 | P.ANESASSM_ITS ---
Pre-Anesthetic Assessment Height/Weight: Height 1.6 m Weight 94.347 kg Preop Diagnosis: panendoscopy Operation Date: 08/08/21 09:35 Proposed Procedures p Lumbar Spine Decompression MIS L4/5 85674/M43.16(Right) - Kaden Call DO Familial anesthetic complications: No family hx of complications with anesthesia Patient often has migraine after anesthesia Was Beta Kristina taken within 24 hours: Yes Was Clonidine taken within 24 hours: N/A Social No alcohol and No tobacco Airway Cervical ROM: Other (Pain (and audible popping on exam) with active ROM testing noted extension. Patient s/p cervical fusion ) Dentition: false Pulmonary Asthma CV/HEM Anemia (Hx of anemia ) and Coronary Artery Disease (S/P coronary stents ) METS > 4 None reported Hepatic None reported GI Gastroesophageal Reflux Disease Hx of gastritis Metabolic Diabetes Mell[place] [facility] Fibromyalgia and Lower Back Pain Anklyosing spondylitis Fusion of cervical spine Inflammatory arthritis + Neuropsych Depression, Headache and Neuropathy (Radicular low back pain ) Anesthetic Plan ASA status: 3 (70 year old female with CAD s/p stents, ankylosing spondylitis, DM, depression, fibromyalgia, and asthma ) Anesthesia: Anesthesia Evaluation and General Other: We discussed risk and benefits of general anesthesia including PONV, sore throat (sometimes severe), corneal abrasion, positioning and peripheral nerve injuries, life threatening allergic reaction, post operative ICU admission requiring prolonged intubation, stroke, heart attack, post op blindness, , and rare incidences of recall. Patient consents to proceed with general anesthesia. Risk of > 500 ml blood loss (7ml/kg in children): No Medications/Allergies Home Medications Medication Instructions Recorded Confirmed Last Taken Type albuterol sulfate 90 mcg/actuation 1 inh INHALATION .prn gm 03/29/19 08/06/21 1 Month Ago History aerosol inhaler (ProAir HFA) ~04/25/20 aspirin 81 mg tablet,delayed 81 mg PO DAILY tab 03/29/19 08/06/21 1 Day Ago History release (Adult Low Dose Aspirin) ~05/22/20 ncfmldg-vvvupxsqoy-FNT-caffeine 30 1 cap PO Q6H PRN 03/29/19 08/06/21 1 Week Ago History mg-50 mg-325 mg-40 mg capsule ~05/16/20 empagliflozin 10 mg tablet 10 mg PO QAM 03/29/19 08/06/21 1 Day Ago History (Jardiance) ~05/22/20 fluticasone propionate 50 1 spray INTRANASAL BID 03/29/19 08/06/21 3 Days Ago History mcg/actuation nasal ~05/20/20 spray,suspension lidocaine 5 % topical patch 1 patch TOPICAL ONCE 03/29/19 08/06/21 1 Week Ago History (Lidoderm) ~05/16/20 montelukast 10 mg tablet 10 mg PO ONCE 03/29/19 08/06/21 1 Week Ago History (Singulair) ~05/16/20 amlodipine 10 mg tablet 10 mg PO DAILY 90 Days #90 tab 06/15/19 08/06/21 1 Day Ago Rx ~05/22/20 metoprolol succinate 25 mg 12.5 mg PO BID 90 Days #90 tab 06/15/19 08/06/21 05/23/20 06:00 Rx tablet,extended release 24 hr rimegepant 75 mg disintegrating 75 mg PO .PRN tab 02/02/20 08/06/21 2 Weeks Ago History tablet (Nurtec ODT) ~05/09/20 olmesartan 20 mg tablet 20 mg PO DAILY 03/27/20 08/06/21 05/23/20 06:00 History pantoprazole 40 mg tablet,delayed 40 mg PO DAILY 42 Days tab 05/23/20 08/06/21 Unknown Rx release (Protonix) nitroglycerin 0.4 mg sublingual 0.4 mg SUBLINGUAL Q5M PRN #25 tab 09/21/20 08/06/21 Unknown Rx tablet (Nitrostat) hydrocodone 7.5 mg-acetaminophen 1 tab PO TID PRN 30 Days #90 tab 12/19/20 08/06/21 Unknown Rx 325 mg tablet allopurinol 300 mg tablet 300 mg PO DAILY #30 tab 05/21/21 08/06/21 Unknown Rx secukinumab 150 mg/mL subcutaneous 300 mg (2 mL) SUBCUT .every 4 05/21/21 08/06/21 Unknown Rx syringe (Cosentyx 300 mg/2 weeks #2 ml Syringes () sulfasalazine 500 mg tablet 1 g PO BID #360 tab 05/21/21 08/06/21 Unknown Rx hydrocodone 7.5 mg-acetaminophen 1 tab PO TID PRN 30 Days #90 tab 07/05/21 08/06/21 Unknown Rx 325 mg tablet cyclobenzaprine 10 mg tablet 10 mg PO TID PRN #60 tab 08/06/21 08/06/21 Unknown Rx gabapentin 600 mg tablet 600 mg PO TID #270 tab 08/06/21 08/06/21 Unknown Rx Allergies Allergy/AdvReac Type Severity Reaction Status Date / Time tramadol AdvReac ADR-Itching Verified 08/06/21 08:58 [facility] Anesthesia Medical History Ankylosing spondylitis Back pain, lumbosacral CAD (coronary artery disease) Chronic migraine Chronic radicular low back pain Colon polyps Depression Diabetes mellitus Dyslipidemia Essential hypertension Facet joint disease of cervical region Fibromyalgia Fusion of spine, cervical region Gastritis Hip pain, right History of acute anterior wall myocardial infarction HLA B27 (HLA B27 positive) Immunization counseling Inflammatory arthritis Joint instability Lumbosacral radiculopathy Sacroiliitis Surgical History H/O esophagogastroduodenoscopy (05/23/20) History of colonoscopy (05/23/20) Presence of stent in anterior descending branch of left coronary artery S/p bilateral carpal tunnel release S/P cervical spinal fusion c4-c5, c5-c6-08/29/2009 S/P cholecystectomy S/P discectomy S/P hysterectomy Family History Father Cancer Hypertension Diabetes Sister Cancer Social History Smoking and tobacco status: never smoked Second hand smoke exposure: No Alcohol intake: never Marital status: / History of recent travel: No Data Anesthesia Cardiac Studies: Echocardiogram 10/27/20 Sestamibi Stress Test (Cardiology) 11/16/20
[2021-08-08] VITALS (12 sets, daily range): BP systolic 134–177; BP diastolic 57–105; PULSE 77–103; RESP 16–18; TEMP 36.2–37.2; O2SAT 94–99
--- NOTE | 2021-08-08 | SCC_ITS ---
Procedure done: 1. L4/5 laminectomy with partial facetectomy 12.2 seconds of fluoroscopic guidance, for a cumulative dose of 9.24 mGy, was provided to Dr. Call by the radiology department. C-arm images of the lumbar spine were saved for the patient's permanent record. [facility]
--- NOTE | 2021-08-08 | XR_ITS ---
WS: [id number] Exam: XR lumbar spine 1V port [id number] Date/Time of Exam: 08/08/2021 12:00 AM Reason For Exam: mis decompression right l4/l5 2 anterior posterior C-arm images of the lower lumbar spine are submitted for evaluation. The images demonstrate a metallic surgical instruments superimposing the L4-5 disc level related to surgical loc alization.. No other significant finding on this limited study.
--- NOTE | 2021-08-08 07:33 | P.ANESUD_ITS ---
Pre-Anesthetic Update Pre-Anesthetic Assessment: Date of Surgery/Procedure: 08/08/21 Preop Marielena gnosis: Lumbar Stenosis L4-5 Proposed Procedure: Operation Date: 08/08/21 09:35 Proposed Procedures p Lumbar Spine Decompression MIS L4/5 00495/M43.16(Right) - Kaden Call, DO Any changes to Pre-Anesthetic Assessment?: No Changes from Pre-Anesthetic Assessment: Plan pre op scopalamine Last Intake: Intake Last Liquid Date 08/08/21 Last Liquid Time 06:00 Last Solid Date 08/07/21 Last Solid Time 17:00 Vitals: Temperature 97.2 F L 08/08/21 07:21 Pulse Rate 77 08/08/21 07:21 Pulse Rhythm 08/08/21 07:23 Pulse Strength 3+ Normal 08/08/21 07:23 Respiratory Rate 18 08/08/21 07:21 Blood Pressure 168/105 08/08/21 07:21 Blood Pressure Germaine n 126 08/08/21 07:21 Pulse Oximetry 97 08/08/21 07:21 Oxygen Delivery Me thod 08/08/21 07:23 Exam: Pre-Anes Outpt Exam: alert, oriented x 3, clear to auscultation bilaterally and regular rate & rhythm Cardiac Studies: Echocardiogram 10/27/20 Sestamibi Stress Test (Cardiology) 11/16/20
[2021-08-08] MEDS: sodium chloride 0.9% 1,000 ML 30 ML IV (07:39)
[2021-08-08] MEDS: scopolamine 1.5 Patch 1 PATCH TRANSDERMA (07:39)
[2021-08-08 07:42] LABS: Basophils # 0.1 10^3/uL (0.0-0.1); Basophils % 0.9 %; Eosinophils # 0.1 10^3/uL (0.0-0.8); Hematocrit 41.1 % (37.0-47.0); Hemoglobin 13.3 g/dL (11.5-15.3); Lymphocytes # 1.7 10^3/uL (0.8-4.8); Lymphocytes % 20.3 %; Mean Corpuscular HGB Conc 32.4 g/dL (30.0-36.0); Mean Corpuscular Hemoglobin 29.7 pg (28.0-34.0); Mean Corpuscular Volume 91.7 fl (81-99); Mean Platelet Volume 10.1 fL (7.4-10.4); Monocytes # 0.8 10^3/uL (0.2-0.9); Monocytes % 9.9 %; Neutrophils # 5.54 10^3/uL (1.8-7.7); Neutrophils % 67.5 %; Nucleated Red Blood Cells % 0 %; Platelet Count 371 10^3/cmm (130-400); Red Blood Count 4.48 10^6/uL (4.1-5.3); Red Cell Distribution Width 13.5 % (12.1-15.1); White Blood Count 8.2 10^3/uL (4.0-10.0)
[2021-08-08 08:01] LABS: Anion Gap 17.2 (5-19); Blood Urea Nitrogen 12 mg/dL (8-23); Calcium 9.7 mg/dL (8.5-10.5); Carbon Dioxide 23 mmol/L (22-29); Chloride 100 mmol/L (98-107); Glucose 166 mg/dL (65-115); Osmolality Calculated 286 mOsm/kg (285-295); Potassium 4.2 mmol/L (3.5-5.1); Sodium 136 mmol/L (136-145)
--- NOTE | 2021-08-08 09:29 | W.PM.OPSUD ---
Surgery/Procedure H&P Update DATE OF PROCEDURE: August 08, 2021 DATE H&P PERFORMED: 07/24/21 H&P UPDATE INFORMATION: I have reviewed H&P completed within last 30 days, I have examined patient prior to procedure and No changes to prior documentation PREOP DIAGNOSIS: Lumbar Stenosis L4-5 PLANNED PROCEDURE: Operation Date: 08/08/21 09:35 Proposed Procedures p Lumbar Spine Decompression MIS L4/5 65304/M43.16(Right) - Kaden Call DO
[2021-08-08] MEDS: fentaNYL 50 mcg/mL INJ 2mL IVP (11:24)
--- NOTE | 2021-08-08 11:25 | PM.OP ---
Operative Report Date of procedure: August 08, 2021 Pre-op diagnosis: Preop Diagnosis Lumbar Stenosis L4-5 with neurogenic claudication Post-op diagnosis: same Procedure done: 1. L4/5 laminectomy with partial facetectomy Surgeon: Kaden Call Geometry Tutor: Cr Holden Geometry Tutor: The surgical consultant, CAROLINA Mcmillan was needed for his expertise under the microscope. He was important and necessary throughout the procedure to complete in a safe and timely manner. He assisted with patient positioning prepping and draping tissue retraction suctioning of the operative field protection of the dural sac and tissue closure Estimated blood loss (mL): 5 Procedure: 1. L4/5 laminectomy with partial facetectomy Patient is brought to the operative suite. After undergoing anesthesia they are placed in the prone position. All areas of impingement are well padded. Patient is then prepped and draped in the normal sterile fashion. A skin incision is made over the L4/5 level. This is confirmed under c-arm guidance. A series of dilators are passed and the tubular retractor is docked on the L4 lamina. A bovie is used to clear the soft tissue off the lamina and the L 4/5 facet joint. A high speed helga is then used to perform the laminectomy and take down the medial aspect of the L 4/5 facet joint. A kerrison rongeure was then used to take down the remaining lamina and smooth the edge of the laminectomy up to the point where the ligamentum flavum attaches. Attention was then brought to the medial aspect of the facet joint. The remaining medial aspect of the superior and inferior aspect of the facet joint were taken down with the kerrison from the pedicle of L4 to L 5. The facet joint had significant hypertrophy. Attention was then brought to the Ligamentum Flavum. The ligament was taken down from the lamina of L4 to L5 and out medially to the remaining facet joint. The ligament was thick. The dura was then exposed. The dura was in good repair. The L4 nerve was then traced with a curette out the L4/5 foramen and found to be adequately decompressed. The L5 nerve was traced with a curette around the L5 pedicle. The lateral recess was opened with a kerrison helping to further decompress the L5 nerve. Wound is then irrigated copiously with saline and surgiflo is used to stop any bleeding. The tubular retractor is removed and the wound is closed with vicryl and monocryl suture. Glue is then used to protect the wound. A sterile dressing is then placed. Patient was then placed in the supine position and transferred to the PACU in stable condition.
[2021-08-08] MEDS: HYDROcodone-acetaminophen 10-325 mg Tablet 1 TAB PO (12:03)
[2021-08-08] MEDS: cetylpyridinium Lozenge 1 EACH MUCOUS MEM (12:11)
--- NOTE | 2021-08-08 14:20 | ANE.PACU2 ---
Inpatient post-anesthesia follow up: Airway intact: Yes Vital signs: Temperature 97.8 F Pulse Rate 89 Respiratory Rate 18 Blood Pressure 155/79 Pulse Oximetry 97 Oxygen Delivery Me thod Room Air Oxygen Flow Rate 6 Fraction of Inspir ed Oxygen Hydration adequate: Yes Nausea and vomiting: No Pain level: 1 Mental status: Baseline
== END 2021-08-08 12:36 | disposition home or self-care (01) ==
PROVIDERS: Anesthesiology; PCP Nurse Practitioner Family; Visit Provider Orthopaedic Surgery
PROC: (CPT 63005; principal; 2021-08-08 09:25)
DX: M48.062 Spinal stenosis, lumbar region with neurogenic claudication (principal); I25.10 Atherosclerotic heart disease of native coronary artery without angina pectoris; Z95.5 Presence of coronary angioplasty implant and graft; K21.9 Gastro-esophageal reflux disease without esophagitis; M79.7 Fibromyalgia; E11.40 Type 2 diabetes mellitus with diabetic neuropathy, unspecified; E78.5 Hyperlipidemia, unspecified; I10 Essential (primary) hypertension
CPT/HCPCS: 63047; 72020; 76000; 80048; 85025; 93005; J0690; J1100; J2370; J2405; J2704; J2710; J3010; J3490; J7030

== ENCOUNTER → 2021-08-23 10:38 | Outpatient (BNVA) | payer MEDICARE, OTHER, SELFPAY | PROVIDERS: PCP Nurse Practitioner Family; Visit Provider Orthopaedic Surgery | DX: Z47.89 Encounter for other orthopedic aftercare (principal); Z98.890 Other specified postprocedural states | CPT/HCPCS: 99024 ==

== ENCOUNTER → 2021-09-20 09:06 | Outpatient (BNVA) | payer MEDICARE, OTHER, SELFPAY | PROVIDERS: PCP Nurse Practitioner Family; Visit Provider Orthopaedic Surgery | DX: Z47.89 Encounter for other orthopedic aftercare (principal); Z98.890 Other specified postprocedural states | CPT/HCPCS: 99024 ==

== ENCOUNTER → 2021-09-24 12:23 | Outpatient (BNVA) | payer MEDICARE, OTHER, SELFPAY | PROVIDERS: PCP Nurse Practitioner Family; Visit Provider Internal Medicine Rheumatology | DX: M45.9 Ankylosing spondylitis of unspecified sites in spine (principal); Z15.89 Genetic susceptibility to other disease; M54.12 Radiculopathy, cervical region; M79.18 Myalgia, other site; E11.9 Type 2 diabetes mellitus without complications; Z79.84 Long term (current) use of oral hypoglycemic drugs; Z79.899 Other long term (current) drug therapy; Z71.89 Other specified counseling | CPT/HCPCS: 36415; 80076; 82550; 99214 ==

== ENCOUNTER → 2021-10-10 11:31 | Outpatient (BNVA) | payer MEDICARE, OTHER, SELFPAY | PROVIDERS: PCP Nurse Practitioner Family; Visit Provider Internal Medicine Cardiovascular Disease | DX: I25.10 Atherosclerotic heart disease of native coronary artery without angina pectoris (principal); I10 Essential (primary) hypertension; Z95.5 Presence of coronary angioplasty implant and graft; I25.2 Old myocardial infarction; E78.5 Hyperlipidemia, unspecified; E11.9 Type 2 diabetes mellitus without complications; M79.7 Fibromyalgia; E66.9 Obesity, unspecified; Z68.38 Body mass index [BMI] 38.0-38.9, adult; Z79.84 Long term (current) use of oral hypoglycemic drugs | CPT/HCPCS: 99213 ==

== ENCOUNTER → 2021-11-13 13:58 | Outpatient (BNVA) | payer MEDICARE, OTHER, SELFPAY | PROVIDERS: PCP Nurse Practitioner Family; Visit Provider Physician Assistant | DX: Z47.89 Encounter for other orthopedic aftercare (principal) | CPT/HCPCS: 99024 ==

== ENCOUNTER 2021-11-21 15:11 | Outpatient (CLI) | payer MEDICARE, OTHER, SELFPAY ==
--- NOTE | 2021-11-21 15:15 | USCV_ITS ---
Kelin Mcmanus Age: 71 Gender: F : 1950 Exam Date: 11/21/2021 15:21 Ordering Phys: Charlie Lincoln MD Technologist: DAVID [place] [facility] [place]: Rt leg pain and edema PROCEDURES: Venous duplex imaging was performed in only the right lower extremity. The following venous structures were evaluated: common femoral vein, profunda vein, proximal portion of the greater saphenous vein, superficial femoral vein, and the popliteal vein. In addition, the posterior tibial and peroneal trunk were evaluated. FINDINGS: Normal 2-D Doppler and augmentation and compressibility throughout the lower extremity venous structures. Additional imaging through the proximal calf veins also reveals no thrombus. Limited evaluation of the greater saphenous vein is patent with no thrombus.. CONCLUSIONS No evidence of right lower extremity DVT. Florencio Pelayo MD (Electronically Signed) Final Date: 22 November 2021 13:25 S
== END 2021-11-21 15:12 | disposition home or self-care (01) ==
LOC: RAD 15:12
PROVIDERS: PCP Nurse Practitioner Family; Visit Provider Internal Medicine Rheumatology
DX: M79.604 Pain in right leg (principal); M79.605 Pain in left leg; R60.0 Localized edema
CPT/HCPCS: 93971

== ENCOUNTER → 2021-12-10 12:50 | Outpatient (BNVA) | payer MEDICARE, OTHER, SELFPAY | PROVIDERS: PCP Nurse Practitioner Family; Visit Provider Anesthesiology Pain Medicine | DX: M54.50 Low back pain, unspecified (principal); M53.3 Sacrococcygeal disorders, not elsewhere classified; M19.90 Unspecified osteoarthritis, unspecified site; M45.9 Ankylosing spondylitis of unspecified sites in spine; M47.812 Spondylosis without myelopathy or radiculopathy, cervical region; M54.6 Pain in thoracic spine; M79.604 Pain in right leg; M79.605 Pain in left leg; Z15.89 Genetic susceptibility to other disease; Z79.899 Other long term (current) drug therapy | CPT/HCPCS: 99214 ==

== ENCOUNTER → 2021-12-27 13:25 | Outpatient (BNVA) | payer MEDICARE, OTHER, SELFPAY | PROVIDERS: PCP Nurse Practitioner Family; Visit Provider Anesthesiology Pain Medicine | DX: M47.816 Spondylosis without myelopathy or radiculopathy, lumbar region (principal) | CPT/HCPCS: 64493; 64494; 64495; J3490 ==

== ENCOUNTER → 2022-01-10 13:04 | Outpatient (BNVA) | payer MEDICARE, OTHER, SELFPAY | PROVIDERS: PCP Nurse Practitioner Family; Visit Provider Anesthesiology Pain Medicine | DX: M54.89 Other dorsalgia (principal); M47.816 Spondylosis without myelopathy or radiculopathy, lumbar region | CPT/HCPCS: 64493; 64494; 64495 ==

== ENCOUNTER → 2022-01-23 12:50 | Outpatient (BNVA) | payer MEDICARE, OTHER, SELFPAY | PROVIDERS: PCP Nurse Practitioner Family; Visit Provider Anesthesiology Pain Medicine | DX: M54.50 Low back pain, unspecified (principal); M53.3 Sacrococcygeal disorders, not elsewhere classified; M19.90 Unspecified osteoarthritis, unspecified site; M47.812 Spondylosis without myelopathy or radiculopathy, cervical region; M54.6 Pain in thoracic spine; M79.605 Pain in left leg; M79.604 Pain in right leg; Z79.899 Other long term (current) drug therapy; Z15.89 Genetic susceptibility to other disease | CPT/HCPCS: 99214 ==

== ENCOUNTER → 2022-02-22 13:33 | Outpatient (BNVA) | payer MEDICARE, OTHER, SELFPAY | PROVIDERS: PCP Nurse Practitioner Family; Visit Provider Nurse Practitioner Family | DX: M79.641 Pain in right hand (principal) | CPT/HCPCS: 73130 ==

== ENCOUNTER → 2022-02-25 14:17 | Outpatient (BNVA) | payer MEDICARE, OTHER, SELFPAY | PROVIDERS: PCP Nurse Practitioner Family; Visit Provider Internal Medicine Rheumatology | DX: M45.9 Ankylosing spondylitis of unspecified sites in spine (principal); Z79.899 Other long term (current) drug therapy; Z15.89 Genetic susceptibility to other disease; Z71.89 Other specified counseling; M54.12 Radiculopathy, cervical region; E11.9 Type 2 diabetes mellitus without complications; Z79.84 Long term (current) use of oral hypoglycemic drugs; Z98.890 Other specified postprocedural states | CPT/HCPCS: 99214 ==

== ENCOUNTER → 2022-03-26 12:32 | Outpatient (BNVA) | payer MEDICARE, OTHER, SELFPAY | PROVIDERS: PCP Nurse Practitioner Family; Visit Provider Anesthesiology Pain Medicine | DX: M47.816 Spondylosis without myelopathy or radiculopathy, lumbar region (principal); M54.89 Other dorsalgia; E11.9 Type 2 diabetes mellitus without complications | CPT/HCPCS: 36416; 64635; 64636; 82962 ==

== ENCOUNTER → 2022-04-03 09:23 | Outpatient (BNVA) | payer MEDICARE, OTHER, SELFPAY | PROVIDERS: PCP Nurse Practitioner Family; Visit Provider Internal Medicine Rheumatology | DX: M45.9 Ankylosing spondylitis of unspecified sites in spine (principal); Z79.899 Other long term (current) drug therapy | CPT/HCPCS: 80076; 82040; 82306; 82310; 82565; 83735; 84132; 85025 ==

== ENCOUNTER → 2022-05-06 14:35 | Outpatient (BNVA) | payer MEDICARE, OTHER, SELFPAY | PROVIDERS: PCP Nurse Practitioner Family; Visit Provider Anesthesiology Pain Medicine | DX: M47.816 Spondylosis without myelopathy or radiculopathy, lumbar region (principal); M54.89 Other dorsalgia; E11.9 Type 2 diabetes mellitus without complications | CPT/HCPCS: 36416; 64635; 64636; 82962; J1030 ==

== ENCOUNTER → 2022-05-22 08:55 | Outpatient (BNVA) | payer MEDICARE, OTHER, SELFPAY | PROVIDERS: PCP Nurse Practitioner Family; Visit Provider Anesthesiology Pain Medicine | DX: M47.812 Spondylosis without myelopathy or radiculopathy, cervical region (principal); M54.12 Radiculopathy, cervical region; M53.3 Sacrococcygeal disorders, not elsewhere classified; M19.90 Unspecified osteoarthritis, unspecified site; M54.6 Pain in thoracic spine; Z79.899 Other long term (current) drug therapy | CPT/HCPCS: 72050; 99214 ==

== ENCOUNTER → 2022-06-03 13:34 | Outpatient (BNVA) | payer MEDICARE, OTHER, SELFPAY | PROVIDERS: PCP Nurse Practitioner Family; Visit Provider Internal Medicine Rheumatology | DX: M45.9 Ankylosing spondylitis of unspecified sites in spine (principal); Z15.89 Genetic susceptibility to other disease; Z79.899 Other long term (current) drug therapy; Z71.89 Other specified counseling; M54.12 Radiculopathy, cervical region; E11.8 Type 2 diabetes mellitus with unspecified complications | CPT/HCPCS: 99214 ==

== ENCOUNTER → 2022-06-13 14:24 | Outpatient (BNVA) | payer MEDICARE, OTHER, SELFPAY | PROVIDERS: PCP Nurse Practitioner Family; Visit Provider Nurse Practitioner Family | DX: I25.10 Atherosclerotic heart disease of native coronary artery without angina pectoris (principal); I10 Essential (primary) hypertension; Z79.82 Long term (current) use of aspirin | CPT/HCPCS: 99214 ==

== ENCOUNTER 2022-06-19 13:06 | Outpatient (CLI) | payer MEDICARE, OTHER, SELFPAY ==
--- NOTE | 2022-06-19 13:45 | MR_ITS ---
WS: [id number] MRI CERVICAL SPINE NONCONTRAST TECHNIQUE: Sagittal T1, T2 and STIR imaging. Axial T2, gradient, and fiesta imaging. CLINICAL INFORMATION: M54.12 - Radiculopathy, cervical region COMPARISON: MRI cervical 2014 FINDINGS: Straightening of the normal cervical lordosis. Prior postoperative changes ACDF C4-C6. Disc bulging w orse at C6-C7. Cord signal appears normal. Hardware appears stable since 2014 C2-C3: Mild facet arthropathy. Spinal canal and foramen are patent. C3-C4: Shallow central disc protrusion with slight indentation on cervical cord. Mild central canal s tenosis. Moderate RIGHT bony foraminal narrowing. Mild LEFT bony foraminal narrowing. Moderate RIGHT facet arthropathy. C4-C5: Moderate bilateral bony foraminal narrowing, RIGHT greater than LEFT. Mild facet arthropathy. Mild central canal stenosis. C5-C6: Anterior cervical fusion. Mild bilateral bony foraminal narrowing. Mild central canal stenosis . C6-C7: Small central disc protrusion. Indentation on cervical cord with mild to moderate central bradley l stenosis. Moderate to severe LEFT and moderate RIGHT bony foraminal narrowing. Mild facet arthropat hy. Central canal stenosis and foraminal stenosis appears progressed. Disc space narrowing at this le shanta has progressed. C7-T1: Spinal canal and foramen are patent. Visualized brain stem structures: Normal. Prevertebral soft tissues: Normal. Incidental perineural cyst RIGHT T1-T2. MR/MR cervical spin wo con* [id number] IMPRESSION: 1. Straightening of the normal cervical lordosis. ACDF C4-C6. Mild central can al stenosis C4-C5 and C5-C6 appears stable. 2. Disc space narrowing C6-C7 has progressed compared to 2014. Shallow central disc protrusion with indentation on the ventral cervical cord with mild to mod erate central canal stenosis. This appears slightly progressed. 3. Moderate RIGHT C3-C4 bony foraminal narrowing with moderate RIGHT facet art hropathy. 4. Mild central canal stenosis C3-C4 appears slightly progressed since 2014. 5. Moderate RIGHT bony foraminal narrowing C4-C5. 6. Moderate to severe LEFT C6-C7 bony foraminal narrowing.
== END 2022-06-19 13:07 | disposition home or self-care (01) ==
LOC: RAD 13:13
PROVIDERS: PCP Nurse Practitioner Family; Visit Provider Anesthesiology Pain Medicine
DX: M54.12 Radiculopathy, cervical region (principal); M48.02 Spinal stenosis, cervical region
CPT/HCPCS: 72141

== ENCOUNTER → 2022-09-02 09:38 | Outpatient (BNVA) | payer MEDICARE, OTHER, SELFPAY | PROVIDERS: PCP Nurse Practitioner Family; Visit Provider Anesthesiology Pain Medicine | DX: M54.12 Radiculopathy, cervical region (principal); M47.812 Spondylosis without myelopathy or radiculopathy, cervical region; M54.89 Other dorsalgia; M53.3 Sacrococcygeal disorders, not elsewhere classified; M19.90 Unspecified osteoarthritis, unspecified site; M45.9 Ankylosing spondylitis of unspecified sites in spine; Z15.89 Genetic susceptibility to other disease; Z79.899 Other long term (current) drug therapy | CPT/HCPCS: 99214 ==

== ENCOUNTER → 2022-09-19 14:07 | Outpatient (BNVA) | payer MEDICARE, OTHER, SELFPAY | PROVIDERS: PCP Nurse Practitioner Family; Visit Provider Internal Medicine Rheumatology | DX: Z15.89 Genetic susceptibility to other disease (principal); Z79.899 Other long term (current) drug therapy; M19.90 Unspecified osteoarthritis, unspecified site; M45.9 Ankylosing spondylitis of unspecified sites in spine; Z71.89 Other specified counseling; M54.12 Radiculopathy, cervical region | CPT/HCPCS: 99214 ==

== ENCOUNTER → 2022-10-24 15:26 | Outpatient (BNVA) | payer MEDICARE, OTHER, SELFPAY | PROVIDERS: PCP Nurse Practitioner Family; Visit Provider Orthopaedic Surgery | DX: M47.22 Other spondylosis with radiculopathy, cervical region (principal); Z98.1 Arthrodesis status | CPT/HCPCS: 99214 ==

== ENCOUNTER → 2022-12-13 10:20 | Outpatient (BNVA) | payer MEDICARE, OTHER, SELFPAY | PROVIDERS: PCP Nurse Practitioner Family; Visit Provider Student in an Organized Health Care Education/Training Program | DX: M25.531 Pain in right wrist (principal); M65.831 Other synovitis and tenosynovitis, right forearm; M65.4 Radial styloid tenosynovitis [de Quervain] | CPT/HCPCS: 20600; 73110; 99203; J3301; J3490 ==

== ENCOUNTER → 2022-12-17 09:03 | Outpatient (BNVA) | payer MEDICARE, OTHER, SELFPAY | PROVIDERS: PCP Nurse Practitioner Family; Visit Provider Orthopaedic Surgery | DX: M54.12 Radiculopathy, cervical region (principal); Z79.891 Long term (current) use of opiate analgesic; R00.0 Tachycardia, unspecified; R07.9 Chest pain, unspecified; R06.09 Other forms of dyspnea; R06.02 Shortness of breath; R00.2 Palpitations; Z79.82 Long term (current) use of aspirin; E66.01 Morbid (severe) obesity due to excess calories; Z68.38 Body mass index [BMI] 38.0-38.9, adult; I10 Essential (primary) hypertension; E78.5 Hyperlipidemia, unspecified; E11.9 Type 2 diabetes mellitus without complications; I25.10 Atherosclerotic heart disease of native coronary artery without angina pectoris | CPT/HCPCS: 36415; 80053; 81003; 83036; 85025; 93005; 99214 ==

== ENCOUNTER → 2022-12-19 13:36 | Outpatient (BNVA) | payer MEDICARE, OTHER, SELFPAY | PROVIDERS: PCP Nurse Practitioner Family; Visit Provider Internal Medicine Rheumatology | DX: Z79.899 Other long term (current) drug therapy (principal); M45.9 Ankylosing spondylitis of unspecified sites in spine; Z15.89 Genetic susceptibility to other disease; Z71.89 Other specified counseling; M54.12 Radiculopathy, cervical region | CPT/HCPCS: 99214 ==

== ENCOUNTER 2022-12-26 06:23 | Outpatient (CLI) | payer MEDICARE, OTHER, SELFPAY ==
--- NOTE | 2022-12-26 06:30 | USCV_ITS ---
Kelin Mcmanus Age: 72 Gender: F : 1950 Exam Date: 12/26/2022 06:43 Ordering Phys: Modesto Drake M.D ([email or web address]) Technologist: BRANDEN Exam Location: [facility] [place] Indication: MURMUR BP: 130 / 70 HR: 79 Rhythm: Sinus Technical Quality: Adequate MEASUREMENTS (Male / Female) Normal Values 2D ECHO LV Diastolic Diameter PLAX 4.4 cm 4.2 - 5.9 / 3.9 - 5.3 cm LV Systolic Diameter PLAX 3.2 cm LV Chamber Size 3.2 cm IVS Diastolic Thickness 1.0 cm 0.6 - 1.0 / 0.6 - 0.9 cm IVS Systolic Thickness 1.7 cm LVPW Diastolic Thickness 1.2 cm 0.6 - 1.0 / 0.6 - 0.9 cm LVPW Systolic Thickness 1.3 cm RV Chamber Size 3.4 cm LVOT Diameter 2.1 cm LV Ejection Fraction 2D Teich 52.2 % LV Ejection Fraction MOD 2C 30.5 % LV Ejection Fraction 2C AL 41.7 % LA Diameter 3.2 cm LA Width 3.6 cm LA Height 4.7 cm RA Width 3.6 cm RA Height 3.8 cm Aorta at Sinotubular Diameter 3.0 cm IVC Diameter 1.0 cm M-MODE Aortic Annulus Diameter 3.3 cm LA Ao Ratio MM 1.1 MV E Point Septal Separation 0.4 cm DOPPLER AV Peak Velocity 236.0 cm/s LVOT Peak Velocity 101.3 cm/s AV Area Cont Eq vti 1.5 cm squared AV Area Cont Eq pk 1.4 cm squared MV Area PHT 4.8 cm squared Mitral E to A Ratio 0.9 MV E' Velocity 80.0 cm/s Mitral E to MV E' Ratio 25.2 Mitral E to LV E' Lateral Ratio 25.6 Mitral E to LV E' Septal Ratio 25.2 TR Peak Velocity 166.6 cm/s TR Peak Gradient 11.1 mmHg TR Mean Velocity 140.8 cm/s TR Mean Gradient 8.3 mmHg TR Velocity Time Integral 46.2 cm TV Peak E Velocity 70.0 cm/s Right Atrial Pressure 3.0 mmHg Pulmonary Artery Systolic Pressu 14.1 mmHg RV Acceleration Time 0.1 s RV Ejection Time 0.3 s RV AcT/ET 0.3 FINDINGS Left Ventricle Left ventricle is normal in size. LV systolic function is normal with EF of 55-60%. No regional wall motion abnormalities are seen. Grade 1 diastolic dysfunction Right Ventricle Normal in size and function Right Atrium Normal in size Left Atrium Dilated Mitral Valve Moderate to severe mitral annular calcification. Mild mitral regurgitation Aortic Valve Aortic valve is thickened. Mild aortic stenosis with aortic valve area of 1.61cm2 and mean gradient across aortic valve of 12mmHg. Aortic regurgitation noted. Severity of aortic regurgitation can not be assessed as doppler signals not optimal. Tricuspid Valve Mild tricuspid regurgitation. Insufficient TR jet to calculate RVSP Pulmonic Valve Not well visualized Pericardium Normal Aorta Normal in size IVC Appears to be normal CONCLUSIONS LV systolic function is normal with EF of 55-60%. Grade 1 diastolic dysfunction Left atrial dilation Mild mitral regurgitation Mild aortic stenosis Aortic regurgitation noted. Severity of aortic regurgitation can not be assessed as doppler signals not optimal. Mild tricuspid regurgitation Compared to prior echocardiogram from 10/27/2020, patient now has mild aortic stenosis and aortic regurgitation. Modesto Drake MD (Electronically Signed) Final Date: 04 January 2023 11:39 S
== END 2022-12-26 06:24 | disposition home or self-care (01) ==
LOC: RAD 06:23
PROVIDERS: PCP Nurse Practitioner Family; Visit Provider Internal Medicine
DX: R01.1 Cardiac murmur, unspecified (principal); I08.3 Combined rheumatic disorders of mitral, aortic and tricuspid valves
CPT/HCPCS: 93306

== ENCOUNTER 2023-01-10 11:00 | Inpatient (IN) | payer MEDICARE, OTHER, SELFPAY ==
[2023-01-10] VITALS (23 sets, daily range): BP systolic 90–204; BP diastolic 24–108; PULSE 66–105; RESP 15–19; TEMP 36.1–37; O2SAT 91–97; BMI 37.6
--- NOTE | 2023-01-10 | XR_ITS ---
WS: [id number] Exam: XR cervical spine 3V* [id number] Date/Time of Exam: 01/10/2023 12:00 AM Reason For Exam: c6-7 stay lif, or pic Intraoperative AP and lateral C-arm images of the cervical spine were obtained for intraoperative pur poses.
--- NOTE | 2023-01-10 06:22 | W.PM.OPSUD ---
Surgery/Procedure H&P Update DATE OF PROCEDURE: January 10, 2023 DATE H&P PERFORMED: 01/07/23 H&P UPDATE INFORMATION: I have reviewed H&P completed within last 30 days, I have examined patient prior to procedure and No changes to prior documentation PREOP DIAGNOSIS: Cervical Radiculopathy PLANNED PROCEDURE: Operation Date: 01/10/23 07:00 Proposed Procedures p Anterior Cervical Discectomy & Fusion ACDF(C6-7)(Not Applicable) - Kaden Call DO
[2023-01-10] MEDS: sodium chloride 0.9% 1,000 ML 30 ML IV (06:27)
[2023-01-10 06:33] LABS: Glucose Point of Care 150 mg/dL (70-110)
[2023-01-10] MEDS: ceFAZolin 2,000 MG in sodium chloride 0.9% (plus) 50 ML 100 MG IV ×3 (06:58→22:43)
--- NOTE | 2023-01-10 07:16 | ANES.PREANE2 ---
Pre-Anesthetic Assessment Height/Weight: Height 1.57 m Weight 93.44 kg Temp Pulse Resp BP Pulse Ox O2 Del Method 97.8 F 83 18 204/108 97 Room Air 01/10/23 06:06 01/10/23 06:06 01/10/23 06:06 01/10/23 06:06 01/10/23 06:06 01/10/23 06:08 Preop Diagnosis: Cervical Radiculopathy Operation Date: 01/10/23 07:00 Proposed Procedures p Anterior Cervical Discectomy & Fusion ACDF(C6-7)(Not Applicable) - Kaden Call DO Last intake: Intake Last Liquid Date 01/09/23 Last Liquid Time 18:00 Last Solid Date 01/09/23 Last Solid Time 18:00 Airway Submandibular: within normal limits Cervical ROM: Other (Adequate CROM w/o neuro complaints) Pulmonary None reported CV/HEM Coronary Artery Disease and Hypertension Metabolic Diabetes Mellitus, Hyperlipidemia and Morbid [place] [facility] [place] Osteoarthritis/DJD () Anesthetic Plan ASA status: 3 Anesthesia: General Medications/Allergies Home Medications Medication Instructions Recorded Confirmed Last Taken Type aspirin 81 mg tablet,delayed 81 mg PO DAILY 03/29/19 01/09/23 01/04/23 History release (Adult Low Dose Aspirin) uyrwerd-mcuikzowyi-URF-caffeine 30 1 cap PO Q6H PRN Pain 03/29/19 01/09/23 01/02/23 History mg-50 mg-325 mg-40 mg capsule empagliflozin 10 mg tablet 10 mg PO QAM 03/29/19 01/09/23 01/02/23 History (Jardiance) fluticasone propionate 50 1 spray intranasal BID 03/29/19 01/09/23 01/09/23 History mcg/actuation nasal spray,suspension lidocaine 5 % topical patch 1 patch topical ONCE 03/29/19 01/09/23 12/26/22 History (Lidoderm) montelukast 10 mg tablet 10 mg PO ONCE 03/29/19 01/09/23 08/07/21 History (Singulair) amlodipine 10 mg tablet 10 mg PO DAILY 3 months #90 tabs 06/15/19 01/10/23 01/10/23 Rx 0500 rimegepant 75 mg disintegrating 75 mg PO .PRN 02/02/20 01/09/23 08/07/21 History tablet (Nurtec ODT) olmesartan 20 mg tablet 20 mg PO DAILY 03/27/20 01/09/23 01/09/23 History pantoprazole 40 mg tablet,delayed 40 mg PO DAILY 6 weeks 05/23/20 01/09/23 08/07/21 Rx release (Protonix) nitroglycerin 0.4 mg sublingual 0.4 mg sublingual Q5M PRN Angina 09/21/20 01/09/23 Unknown Rx tablet (Nitrostat) #25 tabs tizanidine 4 mg tablet 4 mg PO BID PRN muscle spasticity 05/22/22 01/09/23 01/04/23 Rx #60 tabs diclofenac sodium 75 mg 75 mg PO Q12H PRN moderate to 09/19/22 01/09/23 01/02/23 Rx tablet,delayed release severe pain as needed #30 tabs metoprolol succinate 50 mg 50 mg PO BID #180 tabs 12/17/22 01/10/23 01/10/23 Rx tablet,extended release 24 hr 0500 allopurinol 300 mg tablet 300 mg PO DAILY #90 tabs 12/19/22 01/09/23 01/09/23 Rx etanercept 50 mg/mL (1 mL) 50 mg SUBCUT Q7D #12 mL 12/19/22 01/09/23 01/02/23 Rx subcutaneous pen injector (Enbrel SureClick) pregabalin 75 mg capsule (Lyrica) 75 mg PO BID #180 caps 12/19/22 01/09/23 01/04/23 Rx sulfasalazine 500 mg tablet 1 g PO BID #360 tabs 12/19/22 01/09/23 Unknown Rx Allergies Allergy/AdvReac Type Severity Reaction Status Date / Time No Known Allergies Allergy Verified 01/07/23 14:17 Current Medications Generic Name Dose Route Start Last Admin Trade Name Freq PRN Reason Stop Dose Admin Sodium Chloride 1,000 mls @ 30 mls/hr 01/10/23 06:15 01/10/23 06:27 Sodium Chloride 0.9% IV 01/11/23 06:14 30 mls/hr .Q24H CHANO Administration PFSH Anesthesia Medical History Ankylosing spondylitis Back pain, lumbosacral CAD (coronary artery disease) Cervical radiculopathy Chronic migraine Chronic radicular low back pain Colon polyps Depression Diabetes mellitus Dyslipidemia Essential hypertension Facet joint disease of cervical region Fibromyalgia Fusion of spine, cervical region Gastritis Hip pain, right History of acute anterior wall myocardial infarction HLA B27 (HLA B27 positive) Immunization counseling Inflammatory arthritis Joint instability Lumbosacral radiculopathy Sacroiliitis Surgical History H/O esophagogastroduodenoscopy (05/23/20) History of colonoscopy (05/23/20) Presence of stent in anterior descending branch of left coronary artery S/p bilateral carpal tunnel release S/P cervical spinal fusion c4-c5, c5-c6-08/29/2009 S/P cholecystectomy S/P discectomy S/P hysterectomy Family History Father Cancer Hypertension Diabetes Sister Cancer Social History Smoking and tobacco/nicotine status: never used tobacco/nicotine Second hand smoke exposure: Yes Alcohol intake: never Substance/Drug Use: never Marital status: / Data Anesthesia Cardiac Studies: Echocardiogram 12/26/22 Sestamibi Stress Test (Cardiology) 11/16/20
[2023-01-10] MEDS: lidocaine-epi 2% 20 mL INJ INJECTION (07:39)
--- NOTE | 2023-01-10 09:03 | P.OP_ITS ---
Operative Report Date of procedure: January 10, 2023 Pre-op diagnosis: Cervical spondylosis with radiculopathy Post-op diagnosis: same Procedure done: 1. Anterior discectomy C6/7 2. Insertion of Cage C6/7 3. Instrumentation with anterior instrumentation from C6-C7 4. Use of allograft Surgeon: Kaden Call DO Printing Supervisor: Cr Holden Printing Supervisor: The surgical specialist, Cr Holden, [place] was needed for his expertise under the microscope. He was important and necessary throughout the procedure to complete in a safe and timely manner. He assisted with patient positioning prepping and draping tissue retraction suctioning of the operative field protection of the dural sac and tissue closure Estimated blood loss (mL): 50 Procedure: 1. Anterior discectomy C6/7 2. Insertion of Cage C6/7 3. Instrumentation with anterior instrumentation from C6-C7 4. Use of allograft The patient was taken to the operating room, where he underwent general endotracheal anesthesia without complications. He was then positioned supine on the operating table, and all areas of impingement were well padded. The arms were carefully padded and tucked at his sides. A roll was placed between the shoulder blades.. An x-ray was done to determine the appropriate level for the skin incision. The entire neck was then sterilely prepped and draped in the usual fashion. Neuromonitoring was attached prior to prepping. A transverse skin incision was made and carried down to the platysma muscle. This was then split in line with its fibers. Blunt dissection was carried down medial to the carotid sheath and lateral to the trachea and esophagus until the anterior cervical spine was visualized. A needle was placed into a disc and an x-ray was done to determine its location. The longus colli muscles were then elevated bilaterally with the electrocautery unit. Self-retaining retractors were placed deep to the longus colli muscle. Attention was brought to the C 6/7 level that was confirmed on x-ray. A caspar pin was placed into the C6 vertebrae and the hole in the plate above and the C7 vertebrae. The disk space was then distracted. The microscope was then brought in. A radical anterior discectomies were performed at C6/7. This included complete removal of the anterior annulus, nucleus, and posterior annulus. The posterior longitudinal ligament was removed as were the posterior osteophytes. Foraminotomies were then accomplished bilaterally. This was done using a high speed helga, kerrison rongeurs and curretes Once all of this was accomplished, the curved currette was used to check for any residual compression. The central canal was wide open as were the foramen. A high-speed bur was used to remove the cartilaginous endplates above and below the interspace. Bleeding cancellous bone was exposed. The disc space were measured and appropriate size cage were placed sterilely onto the field. Allograft graft was packed into the cages. The cage was then placed and there was good juxtaposition against the bleeding decorticated surfaces and good distraction of each interspace. The [place] pins were removed. Bone wax was used to prevent any bleeding from occurring at the pin sites. Two screws were then placed into each of the vertebral bodies at C6/7. There was excellent purchase. A final x-ray was done confirming good position of the hardware and Cage. The locking Following a final copious irrigation, there was good hemostasis and no dural leaks. The carotid pulse was strong. The wounds were then closed in layers using 2-0 Vicryl suture for the platysma muscle, 2-0 Vicryl suture for the subcutaneo us tissue, and 4-0 monocryl suture in a subcuticular skin closure. Glue was placed followed by application of a sterile dressing. The drain was hooked to bulb suction. A soft collar was applied. The patient was then carefully returned to the supine position on his hospital bed where he was reversed and extubated and taken to the recovery room having tolerated the procedure well.
[2023-01-10] MEDS: fentaNYL 50 mcg/mL INJ 2mL IVP (09:20)
[2023-01-10] MEDS: HYDROcodone-acetaminophen 5-325 mg Tablet PO ×2 (11:23→17:02)
[2023-01-10] MEDS: docusate sodium 100 mg Capsule PO ×2 (11:24→17:22)
[2023-01-10] MEDS: ketorolac 30 mg/mL INJ IVP ×2 (11:24→19:51)
[2023-01-10] MEDS: lactated ringers 1,000 ML 90 ML IV ×2 (11:25→22:44)
[2023-01-10] MEDS: phenol oral Spray 177 mL 3 SPRAY MUCOUS MEM (12:23)
--- NOTE | 2023-01-10 12:45 | ANE.PACU2 ---
Inpatient post-anesthesia follow up: Vital signs: Temperature 98.0 F Pulse Rate 88 Respiratory Rate 15 Blood Pressure 102/77 Pulse Oximetry 95 Oxygen Delivery Me thod Nasal Cannula Oxygen Flow Rate 2 Fraction of Inspir ed Oxygen Hydration adequate: Yes Nausea and vomiting: No Pain level: 4 Mental status: Baseline
[2023-01-10 16:59] LABS: Glucose Point of Care 241 mg/dL (70-110)
[2023-01-10] MEDS: insulin lispro 100 unit/1 mL SUBCUT ×2 (17:21→21:19)
[2023-01-10] MEDS: pregabalin 75 mg Capsule PO (17:22)
[2023-01-10] MEDS: sulfaSALAzine 500 mg Tablet 1000 MG PO (17:22)
[2023-01-10] MEDS: montelukast sodium 10 mg Tablet PO (17:22)
[2023-01-10 20:53] LABS: Glucose Point of Care 319 mg/dL (70-110)
[2023-01-10] MEDS: tizanidine 4 mg Tablet PO (21:22)
[2023-01-11 04:17] VITALS: BP 100/75; PULSE 82; RESP 16; TEMP 36.5; O2SAT 94
[2023-01-11] MEDS: phenol oral Spray 177 mL 3 SPRAY MUCOUS MEM (04:46)
[2023-01-11] MEDS: HYDROcodone-acetaminophen 5-325 mg Tablet PO (04:48)
[2023-01-11] MEDS: ceFAZolin 2,000 MG in sodium chloride 0.9% (plus) 50 ML 100 MG IV (06:08)
[2023-01-11 07:06] LABS: Glucose Point of Care 154 mg/dL (70-110)
--- NOTE | 2023-01-11 07:58 | PM.PN ---
Subjective Subjective: POD 1 Patient resting comfortably. States arm pain is much improved denies swallowing difficulties denies voice changes denies chest pain or headaches. Vitals/I&O/Wt Last Vital Signs Temp 97.7 F 01/11/23 04:17 Pulse 82 01/11/23 04:17 Resp 16 01/11/23 04:17 BP 100/75 01/11/23 04:17 Pulse Ox 94 01/11/23 04:17 O2 Del Method Room Air 01/11/23 04:17 O2 Flow Rate 2 01/10/23 11:40 01/10/23 01/11/23 01/11/23 22:59 06:59 14:59 Intake Total 1678.5 / 3038.5 290 / 3328.5 Output Total 700 / 1025 Balance 978.5 / 2013.5 290 / 2303.5 Weight last 48 hrs Weight 206 lb Physical Exam Narrative: Patient is alert and oriented x3 with a good general appearance normal mood and affect. Nontender with palpation about the incisional site. Incision appears to be clean and dry with Hemovac intact without signs of erythema or drainage. No signs of infection. Good motor strength throughout both upper extremities. Appears to fire in all motor groups with 5/5 strength. Hands are warm good cap refill in all digits. Normal sensation to light touch in all dermatomal areas. A&P Assessment and plan (1) S/P cervical spinal fusion: We will discontinue Hemovac drain. Encourage incentive spirometry at home. Continue Tranquillity J collar. No overhead lifting more than 15 pounds. We will see her back in the office in 1 week's time for wound check. Discharged with hydrocodone which was sent to the main campus pharmacy. Ice to the neck as needed. Attestations Medical Necessity Statement*: Discharge home after discontinuing Hemovac drain. Coding Level of Care Code Acute Code for Chg Fwd Diagnoses S/P cervical spinal fusion Z98.1
[2023-01-11 08:29] VITALS: BP 135/98
[2023-01-11] MEDS: pregabalin 75 mg Capsule PO (08:29)
[2023-01-11] MEDS: losartan 50 mg Tablet PO (08:29)
[2023-01-11] MEDS: allopurinol 300 mg Tablet PO (08:33)
[2023-01-11] MEDS: amlodipine 10 mg Tablet PO (08:33)
[2023-01-11] MEDS: metoprolol succinate ER (24 HR) 50 mg Tablet PO (08:34)
[2023-01-11] MEDS: docusate sodium 100 mg Capsule PO (08:34)
[2023-01-11] MEDS: pantoprazole DR 40 mg Tablet PO (08:34)
[2023-01-11 08:58] VITALS: BP 148/49; PULSE 87; RESP 16; TEMP 36.6; O2SAT 96
--- NOTE | 2023-01-11 09:00 | PC.NURSE ---
Charted the wrong vitals on this patient. They have been corrected as of 0900.
[2023-01-11 10:52] VITALS: BP 148/49; PULSE 87; RESP 16; TEMP 36.6; O2SAT 96
--- NOTE | 2023-01-13 14:24 | P.DS_ITS ---
Discharge Providers Date of Admission: 01/10/23 11:00 Date of Discharge: January 11, 2023 Attending Provider at Admission: Kaden Call DO Attending Provider at Discharge: Kaden Call DO Primary Care Provider: Juliet Beasley APN Diagnoses at Discharge Discharge Diagnosis (1) S/P cervical spinal fusion: Status: Acute Permanent problem details: c4-c5, c5-c6-08/29/2009 C6-7 01/10/2023 Reason for Visit Reason for Visit: M54.12 Discharge Data Studies Completed and Pending Completed Studies During Hospitalization Category Date Time Status XR cervical spine 3V* [id number] Routine Exams 01/10/23 Completed Laboratory Results POC Glucose 154 mg/dL (70-110) H 01/11/23 07:02 Vitals Last Vital Signs Temp 97.8 F 01/11/23 10:52 Pulse 87 01/11/23 10:52 Resp 16 01/11/23 10:52 BP 148/49 01/11/23 10:52 Pulse Ox 96 01/11/23 10:52 O2 Del Method Room Air 01/11/23 04:17 O2 Flow Rate 2 01/10/23 11:40 Discharge Plan Discharge Patient Disposition: Home Condition: Stable Prescriptions: New hydrocodone-acetaminophen 5-325 mg Tablet 1 tab PO Q4H PRN (Reason: Post Operative Pain) 5 Days Qty: 30 0RF Continued lidocaine [Lidoderm] 5 % adhesive patch,medicated 1 patch TOPICAL ONCE bvyynoo-yjsykaluil-SXA-caff [id number] mg capsule 1 cap PO Q6H PRN (Reason: Pain) fluticasone propionate 50 mcg/actuation spray,suspension 1 spray INTRANASAL BID aspirin [Adult Low Dose Aspirin] 81 mg tablet,delayed release (DR/EC) 81 mg PO DAILY Jardiance 10 mg tablet 10 mg PO QAM montelukast [Singulair] 10 mg tablet 10 mg PO ONCE nitroglycerin [Nitrostat] 0.4 mg tablet, sublingual 0.4 mg SUBLINGUAL Q5M PRN (Reason: Angina) Qty: 25 2RF Nurtec ODT 75 mg tablet,disintegrating 75 mg PO .PRN olmesartan 20 mg tablet 20 mg PO DAILY tizanidine 4 mg tablet 4 mg PO BID PRN (Reason: muscle spasticity) Qty: 60 0RF allopurinol 300 mg tablet 300 mg PO DAILY Qty: 90 1RF Enbrel SureClick 50 mg/mL (1 mL) pen injector 50 mg SUBCUT Q7D Qty: 12 1RF pregabalin [Lyrica] 75 mg capsule 75 mg PO BID Qty: 180 1RF sulfasalazine 500 mg tablet 1 g PO BID Qty: 360 1RF Rx Instructions: give with food (meal/snack) metoprolol succinate 50 mg tablet extended release 24 hr 50 mg PO BID Qty: 180 3RF amlodipine 10 mg tablet 10 mg PO DAILY 90 Days Qty: 90 3RF pantoprazole [Protonix] 40 mg tablet,delayed release (DR/EC) 40 mg PO DAILY 42 Days 3RF Held diclofenac sodium 75 mg tablet,delayed release (DR/EC) 75 mg PO Q12H PRN (Reason: moderate to severe pain as needed) Qty: 30 1RF Hold Instructions: Resume on 02/14/23. Discharge Orders: Discharge Order (Routine); Ordered 01/11/23 Ordered By: Cr Holden Referrals: Kaden Call DO [Physician] - (We have notified your physician's clinic of the need for a follow-up appointment to be scheduled. If you have not heard from them within the next 2 business days, please call them directly. You may also reach out to our construction project manager at [phone] and she can assist you.) Juliet Beasley APN [Primary Care Provider] - 4-7 days (Please call Friday to schedule and appointment with Juliet Beasley.) Discharge Diet: Advance as tolerated Discharge Activity: Resume usual activity Patient Instructions: Hydrocodone/Acetaminophen (By mouth), Acute Wound Care (DC), Anterior Cervical Discectomy (DC), Opioid Safety Activity Restrictions/Additional Instructions: Thank you for choosing [facility] for your care! The following is a list of instructions, from your provider, to follow upon your discharge to ensure you have the optimal recovery from your recent injury or surgery. Anterior Cervical Discectomy and Fusion: What to Expect at Home Your Recovery Follow-up care is a roth part of your treatment and safety. Be sure to make and go to all appointments, and call your doctor if you are having problems. If you do not already have a follow-up appointment made, call office in the next 1-3 days to make follow up appointment for 1-2 weeks at [phone]. It is also a good idea to know your test results and keep a list of the medicines you take. You can expect your neck to feel stiff or sore after surgery. This should improve in the weeks after surgery. But it may take 4 to 6 months for you to get better completely. You may have trouble sitting or standing in one position for very long and may need pain medicine in the weeks after your surgery. It may take 4 to 6 weeks to get back to your usual activities, but it may depend on what kind of surgery you had. Your throat will feel sore and it may be difficult to swallow for the first 3 days after your surgery. As long as you can get liquids down without difficulty, this should slowly improve, otherwise call our office or seek medical attention if it becomes increasingly difficult to get anything down including liquids. Avoid hot liquids for first 3-5 days. Soothing foods/liquids such as jello, pudding, and luke warm soups are recommended until swallowing improves. Staying elevated will also help, it's advised you keep propped up at while sleeping to help reduce the swelling. You may use an ice pack directly on your incision or around it on the front of your neck, using a cloth to protect your skin; and a heating pad to the back of your neck as needed. Do not use over the counter anti-inflammatory medications (Ibuprofen, Motrin, Aleve, Advil, etc) Taking these meds after having a fusion can delay fusion rates, we recommend you avoid them for the first [address] after your surgery[address] Dr. Call may advise you to work with a physical therapist to strengthen the muscles around your neck and back - this will be discussed at your follow - up appointments. The pain or numbness you were having in your arms before surgery should get better or go away completely. This care sheet gives you a general idea about how long it will take for you to recover. But each person recovers at a different pace. Follow the steps below to get better as quickly as possible. How can you care for yourself at home? Activity ? Rest when you feel tired. Getting enough sleep will help you recover. ? Try to walk each day. Start by walking a little more than you did the day before. Bit by bit, increase the amount you walk. Walking boosts blood flow and helps prevent pneumonia and constipation. Walking may also decrease your muscle soreness after surgery. ? No lifting anything that is more that 5 pounds. This may include heavy grocery bags and milk containers, a heavy briefcase or backpack, cat litter or dog food bags, a child, or a vacuum wheat cleaner. ? Avoid strenuous activities, such as bicycle riding, jogging, weightli fting, or aerobic exercise, until your doctor says it is okay. ? Do not drive until your follow-up visit after your surgery, or until your doctor says it isokay. ? Avoid taking long car trips for 2 to 4 weeks after surgery. Your neck may become tired and painful from sitting too long in one position. ? You will probably need to take 4 to 6 weeks off from work. It depends on the type of work you do and how you feel. ? You may have sex as soon as you feel able, but avoid positions that put stress on your neck or cause pain. Diet ? You can eat your normal diet. If your stomach is upset, try bland, low-fat foods like plain rice, broiled chicken, toast, and yogurt ? Drink plenty of fluids. If you have kidney, heart, or liver disease and have to limit fluids, talk with your doctor before you increase the amount of fluids you drink. ? You may notice that your bowel movements are not regular right after your surgery. This is common. Try to avoid constipation and straining with bowel movements. You may want to take a fiber supplement every day. If you have not had a bowel movement after a couple of days, ask your doctor about taking a mild laxative. Medicines ? Take pain medicines exactly as directed. 1. If Dr. Call gave you a prescription medicine for pain, take lt as prescribed. 2. Do not take two or more pain medicines at the same time unless the doctor told you to. Many pain medicines have acetaminophen, which is Tylenol. Too much acetaminophen {Tylenol) can be harmful. 3. If you think your pain pill is making you sick to your stomach: 4. Take your pills after meals (unless your doctor has told you not to). 5. Ask your Dr. for a different pain pill. Incisioncare ? Remove your dressing 48 hours after your surgery. Ok to shower and get the incision wet. Do not overtly wash your incision. When done, pad dry, leave open to air thereafter. Avoid creams and ointments directly on your inc ision. ? Your sutures in the incision will dissolve and fall out on their own. ? Keep the area clean and dry. You may cover it with a gauze bandage if it weeps or rubs against clothing; if you choose to do this, change the dressing everyday. Other instructions ? Use a heating pad, hot water bottle, or gentle massage on your back to reduce stiffness. Avoid putting heat on your incision When should you call for help? ? Call 911 anytime you think you may need emergency care. For example, call if: ? You pass out (lose consciousness). ? You have sudden chest pain and shortness of breath, or you cough upblood. ? You cannot swallow. ? You have severe pain in your neck or back. ? Call your Dr. or seek immediate medical care if: ? You have pain that does not get better after you take pain pills. ? You have loose stitches, or your incision comes open. ? You have blood or fluid draining from the incision. ? You have signs of infection, such as: 1. Increased pain, swelling, warmth, or redness. 2. Red streaks leading from the site. 3. Pus draining from the site. 4. Swollen lymph nodes in your neck or armpits. 5. A fever. ? You have severe pain in your arms. ? You have new or increased weakness or numbness in your arms. ? Watch closely for any changes in your health, and be sure to contact your doctor if: ? You do not have a bowel movement after taking a laxative. Discharge Attestations Time Spent in Discharge Care*: less than 30 min Quality Metrics Clinical Quality Measures [ No reported AMI, CVA or VTE this stay] Coding Level of Care Code Acute Code for Chg Fwd Diagnoses S/P cervical spinal fusion Z98.1
== END 2023-01-11 10:52 | disposition home or self-care (01) | DRG 473 ==
LOC: MEDSURG 11:02
PROVIDERS: Admitting Provider Orthopaedic Surgery; PCP Nurse Practitioner Family; Visit Provider Orthopaedic Surgery
PROC: 0RB30ZZ Excision of Cervical Vertebral Disc, Open Approach (ICD-10-PCS; CPT 22551; principal; 2023-01-10 07:00)
DX: M47.812 Spondylosis without myelopathy or radiculopathy, cervical region (principal); Z79.891 Long term (current) use of opiate analgesic; Z79.82 Long term (current) use of aspirin; Z79.84 Long term (current) use of oral hypoglycemic drugs; E11.9 Type 2 diabetes mellitus without complications; E78.5 Hyperlipidemia, unspecified; E66.01 Morbid (severe) obesity due to excess calories; Z68.37 Body mass index [BMI] 37.0-37.9, adult; I10 Essential (primary) hypertension
CPT/HCPCS: 36416; 72040; 76000; 82962; 96372; 97110; 97161; C1713; C9359; J0131; J0690; J1170; J1815; J1885; J2371; J2704; J2710; J3010; J3490; J7030; J7120; L0172

== ENCOUNTER → 2023-01-23 08:25 | Outpatient (BNVA) | payer MEDICARE, OTHER, SELFPAY | PROVIDERS: PCP Nurse Practitioner Family; Visit Provider Physician Assistant | DX: Z98.1 Arthrodesis status (principal); Z47.89 Encounter for other orthopedic aftercare | CPT/HCPCS: 72040; 99024 ==

== ENCOUNTER → 2023-02-11 09:28 | Outpatient (BNVA) | payer MEDICARE, OTHER, SELFPAY | PROVIDERS: PCP Nurse Practitioner Family; Visit Provider Physician Assistant | DX: Z47.89 Encounter for other orthopedic aftercare (principal); Z98.1 Arthrodesis status | CPT/HCPCS: 72040; 99024 ==

== ENCOUNTER → 2023-04-15 07:55 | Outpatient (BNVA) | payer MEDICARE, OTHER, SELFPAY | PROVIDERS: PCP Nurse Practitioner Family; Visit Provider Orthopaedic Surgery | DX: Z47.89 Encounter for other orthopedic aftercare; Z98.1 Arthrodesis status; T84.216A Breakdown (mechanical) of internal fixation device of vertebrae, initial encounter; Y79.2 Prosthetic and other implants, materials and accessory orthopedic devices associated with adverse incidents | CPT/HCPCS: 72040; 99024 ==

== ENCOUNTER 2023-04-18 07:36 | Day surgery (SDC) | payer MEDICARE, OTHER, SELFPAY ==
[2023-04-18] VITALS (10 sets, daily range): BP systolic 98–168; BP diastolic 63–104; PULSE 78–98; RESP 16–28; TEMP 36.2–36.5; O2SAT 90–98; BMI 37.1
--- NOTE | 2023-04-18 | XR_ITS ---
WS: [id number] XR cervical spine 3V* [id number] REASON FOR EXAM: RAZIA PICS FINDINGS: Previous anterior fusion C4-C7. The inferior most oblique screw at C6-C7 (demonstrated to be backing out) has been removed and replac ed by a larger screw. Surgical appliances are intact and in proper position and alignment. IMPRESSION: Modification of previous anterior cervical fusion as above.
--- NOTE | 2023-04-18 07:54 | W.PM.OPSUD ---
Surgery/Procedure H&P Update DATE OF PROCEDURE: April 18, 2023 DATE H&P PERFORMED: 01/07/23 H&P UPDATE INFORMATION: I have reviewed H&P completed within last 30 days, I have examined patient prior to procedure and No changes to prior documentation PREOP DIAGNOSIS: Hardware loosening PLANNED PROCEDURE: Operation Date: 04/18/23 08:50 Proposed Procedures p Hardware Removal Cervical(Not Applicable) - Kaden Call, DO
[2023-04-18 08:07] LABS: Glucose Point of Care 160 mg/dL (70-110)
[2023-04-18] MEDS: sodium chloride 0.9% 1,000 ML 30 ML IV (08:07)
--- NOTE | 2023-04-18 08:13 | ANES.PREANE2 ---
Pre-Anesthetic Assessment Height/Weight: Height 1.57 m Weight 92.079 kg Temp Pulse Resp BP O2 Del Method 97.5 F L 98 19 H 168/104 Room Air 04/18/23 07:49 04/18/23 07:49 04/18/23 07:49 04/18/23 07:49 04/18/23 07:49 Preop Diagnosis: Hardware loosening Operation Date: 04/18/23 08:50 Proposed Procedures p Hardware Removal Cervical(Not Applicable) - Kaden Call, DO Familial anesthetic complications: None Was Beta Kristina taken within 24 hours: Yes Was Clonidine taken within 24 hours: N/A Last intake: Intake Last Liquid Date 04/17/23 Last Liquid Time 18:00 Last Solid Date 04/17/23 Last Solid Time 18:00 Social No alcohol and No tobacco Exam alert, oriented x 3, clear to auscultation bilaterally and regular rate & rhythm Airway Mallampati: Class III CV/HEM Coronary Artery Disease and Hypertension Echo 2022 CONCLUSIONS LV systolic function is normal with EF of 55-60%. Grade 1 diastolic dysfunction Left atrial dilation Mild mitral regurgitation Mild aortic stenosis Aortic regurgitation noted. Severity of aortic regurgitation can not be assessed as doppler signals not optimal. Mild tricuspid regurgitation Compared to prior echocardiogram from 10/27/2020, patient now has mild aortic stenosis and aortic regurgitation. Metabolic Morbid Obesity Medications/Allergies Home Medications Medication Instructions Recorded Confirmed Last Taken Type aspirin 81 mg tablet,delayed 81 mg PO DAILY 03/29/19 04/17/23 04/11/23 History release (Adult Low Dose Aspirin) zclhotr-rpfiiynbmp-AQZ-caffeine 30 1 cap PO Q6H PRN Pain 03/29/19 04/17/23 01/02/23 History mg-50 mg-325 mg-40 mg capsule empagliflozin 10 mg tablet 10 mg PO QAM 03/29/19 04/17/23 04/14/23 History (Jardiance) fluticasone propionate 50 1 spray intranasal BID 03/29/19 04/17/23 04/09/23 History mcg/actuation nasal spray,suspension lidocaine 5 % topical patch 1 patch topical ONCE 03/29/19 04/17/23 12/26/22 History (Lidoderm) montelukast 10 mg tablet 10 mg PO ONCE 03/29/19 04/17/23 08/07/21 History (Singulair) amlodipine 10 mg tablet 10 mg PO DAILY 3 months #90 tabs 06/15/19 04/18/23 04/18/23 Rx rimegepant 75 mg disintegrating 75 mg PO .PRN 02/02/20 04/17/23 04/03/23 History tablet (Nurtec ODT) olmesartan 20 mg tablet 20 mg PO DAILY 03/27/20 04/17/23 04/16/23 History pantoprazole 40 mg tablet,delayed 40 mg PO DAILY 6 weeks 05/23/20 04/17/23 08/07/21 Rx release (Protonix) nitroglycerin 0.4 mg sublingual 0.4 mg sublingual Q5M PRN Angina 09/21/20 04/17/23 Unknown Rx tablet (Nitrostat) #25 tabs tizanidine 4 mg tablet 4 mg PO BID PRN muscle spasticity 05/22/22 04/18/23 04/11/23 Rx #60 tabs diclofenac sodium 75 mg 75 mg PO Q12H PRN moderate to 09/19/22 04/17/23 01/02/23 Rx tablet,delayed release severe pain as needed #30 tabs metoprolol succinate 50 mg 50 mg PO BID #180 tabs 12/17/22 04/18/23 04/18/23 Rx tablet,extended release 24 hr allopurinol 300 mg tablet 300 mg PO DAILY #90 tabs 12/19/22 04/17/23 04/14/23 Rx etanercept 50 mg/mL (1 mL) 50 mg SUBCUT Q7D #12 mL 12/19/22 04/17/23 04/07/23 Rx subcutaneous pen injector (Enbrel SureClick) pregabalin 75 mg capsule (Lyrica) 75 mg PO BID #180 caps 12/19/22 04/17/23 04/07/23 Rx sulfasalazine 500 mg tablet 1 g (2 x 500 mg) PO BID #360 tabs 12/19/22 04/17/23 04/14/23 Rx Allergies Allergy/AdvReac Type Severity Reaction Status Date / Time No Known Allergies Allergy Verified 04/15/23 07:56 Current Medications Generic Name Dose Route Start Last Admin Trade Name Freq PRN Reason Stop Dose Admin Sodium Chloride 1,000 mls @ 30 mls/hr 04/18/23 07:45 04/18/23 08:07 Sodium Chloride 0.9% IV 04/19/23 07:44 30 mls/hr .Q24H CHANO Administration PFSH Anesthesia Medical History Cervical radiculopathy Immunization counseling Colon polyps Gastritis HLA B27 (HLA B27 positive) Ankylosing spondylitis Sacroiliitis Hip pain, right Joint instability Depression Inflammatory arthritis History of acute anterior wall myocardial infarction CAD (coronary artery disease) Dyslipidemia Essential hypertension Diabetes mellitus Chronic radicular low back pain Fusion of spine, cervical region Lumbosacral radiculopathy Fibromyalgia Facet joint disease of cervical region Back pain, lumbosacral Chronic migraine Surgical History H/O esophagogastroduodenoscopy (05/23/20) History of colonoscopy (05/23/20) Presence of stent in anterior descending branch of left coronary artery S/p bilateral carpal tunnel release S/P cholecystectomy S/P discectomy S/P hysterectomy S/P cervical spinal fusion c4-c5, c5-c6-08/29/2009 C6-7 01/10/2023 Family History Father Cancer Hypertension Diabetes Sister Cancer Social History Smoking and tobacco/nicotine status: never used tobacco/nicotine Second hand smoke exposure: Yes Alcohol intake: never Substance/Drug Use: never Marital status: / Data Anesthesia Cardiac Studies: Echocardiogram 12/26/22 Sestamibi Stress Test (Cardiology) 11/16/20
[2023-04-18] MEDS: ceFAZolin 2,000 MG in sodium chloride 0.9% (plus) 50 ML 100 MG IV (08:21)
[2023-04-18] MEDS: lidocaine-epi 1% 20 mL INJ INJECTION (08:58)
--- NOTE | 2023-04-18 09:39 | P.OP_ITS ---
Operative Report Date of procedure: April 18, 2023 Pre-op diagnosis: Loose hardware Post-op diagnosis: same Procedure done: Removal of screw from cervical spine. Replacement of screw in cervical spine. Surgeon: Kaden Call DO Estimated blood loss (mL): 25 Procedure: Removal of screw from cervical spine. Replacement of screw in cervical spine. The patient was taken to the operating room, where he underwent general endotracheal anesthesia without complications. He was then positioned supine on the operating table, and all areas of impingement were well padded. The arms were carefully padded and tucked at his sides. A roll was placed between the shoulder blades.. An x-ray was done to determine the appropriate level for the skin incision. The entire neck was then sterilely prepped and draped in the usual fashion. A transverse skin incision was made and carried down to the platysma muscle using the previous skin incision. Scar tissue was dissected out with Metzenbaums scissors. This was then split in line with its fibers. Blunt dissection was carried down medial to the carotid sheath and lateral to the trachea and esophagus until the anterior cervical spine was visualized. Self- retaining retractors were placed deep to the longus colli muscle. The screws backing out was identified. The screw was removed. And then a 4.0 rescue screw was placed close 14 mm long. This had good purchase. The other screws felt felt to be tight. At this point wounds were irrigated bleeding was coagulated. The latissimus was closed with 2-0 Vicryl skin was closed with 2-0 Vicryl and Monocryl. Sterile dressings were applied patient transferred to the PACU in stable condition.
[2023-04-18] MEDS: ondansetron 2 mg/ML SDV 2 mL 4 MG IVP (09:53)
[2023-04-18] MEDS: fentaNYL 50 mcg/mL INJ 2mL IVP (09:55)
[2023-04-18] MEDS: HYDROcodone-acetaminophen 10-325 mg Tablet 1 TAB PO (11:13)
== END 2023-04-18 11:14 | disposition home or self-care (01) ==
PROVIDERS: PCP Nurse Practitioner Family; Visit Provider Orthopaedic Surgery
PROC: (CPT 22849; principal; 2023-04-18 08:10)
DX: T84.296A Other mechanical complication of internal fixation device of vertebrae, initial encounter (principal); Y82.8 Other medical devices associated with adverse incidents; I25.10 Atherosclerotic heart disease of native coronary artery without angina pectoris; E78.5 Hyperlipidemia, unspecified; I10 Essential (primary) hypertension; E11.9 Type 2 diabetes mellitus without complications
CPT/HCPCS: 22849; 36416; 72040; 76000; 82962; J0690; J1100; J2405; J2704; J2710; J3010; J3490; J7030

== ENCOUNTER → 2023-05-02 08:43 | Outpatient (BNVA) | payer MEDICARE, OTHER, SELFPAY | PROVIDERS: PCP Nurse Practitioner Family; Visit Provider Orthopaedic Surgery | DX: Z47.89 Encounter for other orthopedic aftercare (principal); Z98.1 Arthrodesis status | CPT/HCPCS: 72040; 99024 ==

== ENCOUNTER → 2023-05-06 09:45 | Outpatient (BNVA) | payer MEDICARE, OTHER, SELFPAY | PROVIDERS: PCP Nurse Practitioner Family; Visit Provider Internal Medicine Rheumatology | DX: Z79.899 Other long term (current) drug therapy (principal); Z15.89 Genetic susceptibility to other disease; M45.9 Ankylosing spondylitis of unspecified sites in spine; Z71.89 Other specified counseling; M54.12 Radiculopathy, cervical region | CPT/HCPCS: 36415; 80076; 82565; 84550; 85025; 86140; 96372; 99214; J1885 ==

== ENCOUNTER → 2023-06-12 10:49 | Outpatient (BNVA) | payer MEDICARE, OTHER, SELFPAY | PROVIDERS: PCP Nurse Practitioner Family; Visit Provider Orthopaedic Surgery | DX: Z98.1 Arthrodesis status (principal) | CPT/HCPCS: 72040; 99024 ==

== ENCOUNTER → 2023-06-17 12:44 | Outpatient (BNVA) | payer MEDICARE, OTHER, SELFPAY | PROVIDERS: PCP Nurse Practitioner Family; Visit Provider Internal Medicine | DX: I25.10 Atherosclerotic heart disease of native coronary artery without angina pectoris (principal); E66.9 Obesity, unspecified; Z68.38 Body mass index [BMI] 38.0-38.9, adult; E78.5 Hyperlipidemia, unspecified; I10 Essential (primary) hypertension; E11.9 Type 2 diabetes mellitus without complications; Z79.84 Long term (current) use of oral hypoglycemic drugs; R00.2 Palpitations | CPT/HCPCS: 99214 ==

== ENCOUNTER → 2023-07-24 08:48 | Outpatient (BNVA) | payer MEDICARE, OTHER, SELFPAY | PROVIDERS: PCP Nurse Practitioner Family; Visit Provider Orthopaedic Surgery | DX: Z98.1 Arthrodesis status (principal) | CPT/HCPCS: 72040; 99024 ==

== ENCOUNTER → 2023-10-23 10:35 | Outpatient (BNVA) | payer MEDICARE, OTHER, SELFPAY | PROVIDERS: PCP Nurse Practitioner Family; Visit Provider Orthopaedic Surgery | DX: Z98.1 Arthrodesis status (principal) | CPT/HCPCS: 72040; 99213 ==

== ENCOUNTER 2023-11-19 14:13 | Outpatient (CLI) | payer MEDICARE, OTHER, SELFPAY ==
--- NOTE | 2023-11-19 14:20 | XR_ITS ---
WS: [id number] Examination: XR chest 2V* [id number] Reason for Exam: BRONCHITIS Date: 11/19/2023 Comparison: 02/06/2019 Findings: The heart is not enlarged. The mediastinum is not widened. There is no pulmonary edema or large effusion. There is no dense consolidation There is a calcified granuloma in the right base Previous surgical changes to the lower cervical spine are noted. Hypertrophic changes of the thoracic spine are present. There is a suspected bony density thought to represent hypertrophic change at the level of the aortic knob at approximately T5-6 on the left. XR/XR chest 2V* [id number] Impression: No acute lung process is identified.
== END 2023-11-19 14:14 | disposition home or self-care (01) ==
LOC: RAD 14:17
PROVIDERS: PCP Nurse Practitioner Family; Visit Provider Nurse Practitioner Family
DX: J40 Bronchitis, not specified as acute or chronic (principal); J84.10 Pulmonary fibrosis, unspecified; M89.40 Other hypertrophic osteoarthropathy, unspecified site
CPT/HCPCS: 71046

== ENCOUNTER → 2023-12-23 13:21 | Outpatient (BNVA) | payer MEDICARE, OTHER, SELFPAY | PROVIDERS: PCP Nurse Practitioner Family; Visit Provider Internal Medicine | DX: I25.10 Atherosclerotic heart disease of native coronary artery without angina pectoris (principal); E66.9 Obesity, unspecified; Z68.39 Body mass index [BMI] 39.0-39.9, adult; E78.5 Hyperlipidemia, unspecified; I10 Essential (primary) hypertension; E11.9 Type 2 diabetes mellitus without complications; Z79.84 Long term (current) use of oral hypoglycemic drugs; R00.2 Palpitations | CPT/HCPCS: 99214 ==

== ENCOUNTER → 2024-01-19 10:30 | Outpatient (BNVA) | payer MEDICARE, OTHER, SELFPAY | PROVIDERS: PCP Nurse Practitioner Family; Visit Provider Internal Medicine Rheumatology | DX: M45.9 Ankylosing spondylitis of unspecified sites in spine (principal); Z79.899 Other long term (current) drug therapy; G43.909 Migraine, unspecified, not intractable, without status migrainosus; Z15.89 Genetic susceptibility to other disease; Z71.89 Other specified counseling; M54.12 Radiculopathy, cervical region; G89.29 Other chronic pain; E11.9 Type 2 diabetes mellitus without complications | CPT/HCPCS: 36415; 80076; 82565; 85025; 85651; 86140; 99214 ==

== ENCOUNTER 2024-01-28 06:22 | Outpatient (CLI) | payer MEDICARE, OTHER, SELFPAY ==
--- NOTE | 2024-01-28 06:32 | USCV_ITS ---
Kelin Mcmanus Age: 73 Gender: F : 1950 Exam Date: 01/28/2024 06:40 Ordering Phys: Modesto Drake M.D ([email or web address]) Technologist: Exam Location: [facility] [place] Indication: as BP: 130 / 80 HR: 63 Rhythm: Sinus Technical Quality: Adequate MEASUREMENTS (Male / Female) Normal Values 2D ECHO LV Diastolic Diameter PLAX 4.0 cm 4.2 - 5.9 / 3.9 - 5.3 cm IVS Diastolic Thickness 1.3 cm 0.6 - 1.0 / 0.6 - 0.9 cm IVS Systolic Thickness 1.9 cm LVPW Diastolic Thickness 1.3 cm 0.6 - 1.0 / 0.6 - 0.9 cm LVPW Systolic Thickness 1.7 cm LVOT Diameter 2.3 cm LV Ejection Fraction 2D Teich 65.4 % LV Ejection Fraction MOD 4C 64.4 % LV Ejection Fraction MOD 2C 59.8 % LV Ejection Fraction 2C AL 60.1 % LA Diameter 4.3 cm RA Systolic Volume 4C AL 43.6 ml RA Systolic Volume 4C MOD 44.1 ml LA Sys Volume AL 92.4 cm cubed LA Sys Volume Index AL 44.7 cm cubed/m squared Aorta at Sinotubular Diameter 3.1 cm M-MODE LA Ao Ratio MM 1.3 MV E Point Septal Separation 1.4 cm AV Cusp Separation MM 2.3 cm DOPPLER AV Peak Velocity 210.0 cm/s LVOT Peak Velocity 95.0 cm/s AV Area Cont Eq vti 2.5 cm squared AV Area Cont Eq pk 1.9 cm squared MV Peak Velocity 187.0 cm/s MV Area PHT 3.0 cm squared Mitral E to A Ratio 0.8 TR Peak Velocity 286.0 cm/s TR Peak Gradient 32.7 mmHg TV Peak E Velocity 160.0 cm/s PV Peak Velocity 104.0 cm/s FINDINGS Left Ventricle Left ventricle is normal in size. LV systolic function is normal with EF of 55 to 60%. No regional wall motion abnormalities are seen. Grade 1 diastolic dysfunction Right Ventricle Normal in size and function Right Atrium Normal in size Left Atrium Dilated Mitral Valve Moderate mitral annular calcification. Mild mitral regurgitation. Mild mitral stenosis with mean gradient of 4.6 mmHg. Aortic Valve Structurally normal aortic valve. Mild aortic stenosis with mean gradient of 8 mmHg with aortic valve area of 1.86cm2. Tricuspid Valve Mild tricuspid regurgitation. Pulmonary artery systolic pressure is 30 to 35 mmHg. Pulmonic Valve Not well visualized Pericardium Normal Aorta Normal in size IVC Not well visualized. CONCLUSIONS LV systolic function is normal with EF of 55-60% Grade 1 diastolic dysfunction Left atrial dilation Mild mitral regurgitation. Mild mitral stenosis with mean gradient of 4.6 mmHg. Mild aortic stenosis. Mild tricuspid regurgitation Compared to prior echocardiogram from 12/2022, patient has mild mitral stenosis. Modesto Drake MD (Electronically Signed) Final Date: 07 February 2024 13:32 S
== END 2024-01-28 06:23 | disposition home or self-care (01) ==
LOC: RAD 06:22
PROVIDERS: PCP Nurse Practitioner Family; Visit Provider Internal Medicine
DX: I50.30 Unspecified diastolic (congestive) heart failure (principal); I34.81 Nonrheumatic mitral (valve) annulus calcification
CPT/HCPCS: 93306

== ENCOUNTER 2024-01-31 11:43 | Emergency (ER) | payer MEDICARE, OTHER, SELFPAY ==
--- NOTE | 2024-01-31 11:51 | ECG_ITS ---
[facility]24-01[facility]31 Pat Name: Kelin Mcmanus Department: Room: Gender: Female Chief Green Officer: : 1950 Requested By: Raghu Waddell Order Number: [id number] Danitza MD: Gil Esqueda M.D. Measurements Intervals [place] Rate: 70 P: 77 TN: 204 QRS: 19 QRSD: 72 T: 46 QT: 445 QTc: 481 Interpretive Statements SINUS RHYTHM LOW QRS VOLTAGE IN PRECORDIAL LEADS [QRS DEFLECTION < 1.0 mV IN CHEST LEADS] ANTERIOR MYOCARDIAL INFARCTION , PROBABLY OLD [40+ ms Q WAVE AND/OR ST/T ABNORMALITY IN V3/V4] Compared to ECG 12/17/2022 13:27:29 Sinus tachycardia no longer present Myocardial infarct finding still present Electronically Signed On 01-31-2024 15:51:55 BRANCH ASSOCIATE TELLER by Gil Esqueda M.D. [email or web address]
[2024-01-31 12:02] VITALS: BP 73/47; PULSE 68; RESP 14; TEMP 36.5; O2SAT 95
[2024-01-31 12:05] LABS: Glucose Point of Care 240 mg/dL (70-110)
--- NOTE | 2024-01-31 12:06 | XRR_ITS ---
PROCEDURE INFORMATION: Exam: XR Chest Exam date and time: 01/31/2024 12:24 PM Age: 73 years old Clinical indication: Other: Syncope TECHNIQUE: Imaging protocol: Radiologic exam of the chest. Views: 1 view. COMPARISON: CR XR chest 2V* [id number] 11/19/2023 2:24 PM FINDINGS: Lungs: There are pulmonary parenchymal calcifications consistent with remote granulomatous organism exposure.No consolidation. Pleural spaces: Unremarkable. No pleural effusion. No pneumothorax. Heart/Mediastinum: Unremarkable. No cardiomegaly. Bones/joints: There are degenerative changes in the thoracic spine and across the acromioclavicular joints. XR/XR chest 1V portable [id number] IMPRESSION: No acute findings.
--- NOTE | 2024-01-31 12:11 | ED_ITS ---
HPI - Weakness 2 General: Chief complaint: Weakness Stated complaint: pass out (1-3mins) tired, weak Time Seen by Provider: 01/31/24 12:01 History of Present Illness: Patient presents to the ER after a sudden bout of weakness and passing out for couple minutes while eating lunch. This all started about 45 minutes ago. Patient still feels weak and not quite right. She feels extremely tired. Blood pressure in triage was 73/47 with a blood sugar 240, no obvious neurologic focal deficits noted. Family says patient has been doing this for about the last couple weeks but never quite this severe. They said patient actually passed out this time and had to be held up. And then when she came to she had to have help walking to the car to the she normally does not need help for. Review of Systems 2 General: Reports: 10 or more systems reviewed and unremarkable except in HPI and below PFSH ED 2 PFSH: Medical History Cervical radiculopathy Immunization counseling Colon polyps Gastritis HLA B27 (HLA B27 positive) Ankylosing spondylitis Sacroiliitis Hip pain, right Joint instability Depression Inflammatory arthritis History of acute anterior wall myocardial infarction CAD (coronary artery disease) Dyslipidemia Essential hypertension Diabetes mellitus Chronic radicular low back pain Fusion of spine, cervical region Lumbosacral radiculopathy Fibromyalgia Facet joint disease of cervical region Back pain, lumbosacral Chronic migraine Surgical History H/O esophagogastroduodenoscopy (05/23/20) History of colonoscopy (05/23/20) Presence of stent in anterior descending branch of left coronary artery S/p bilateral carpal tunnel release S/P cholecystectomy S/P discectomy S/P hysterectomy S/P cervical spinal fusion c4-c5, c5-c6-08/29/2009 C6-7 01/10/2023 Family History Father Cancer Hypertension Diabetes Sister Cancer Social History Smoking and tobacco/nicotine status: never used tobacco/nicotine Second hand smoke exposure: Yes Alcohol intake: never Substance/Drug Use: never Marital status: / Physical Exam 2 Const: COMMON NORMALS: no acute distress, average body habitus, patient oriented x3, no limitations, healthy appearing, alert and well nourished HENMT: COMMON NORMALS: normocephalic, atraumatic, hearing grossly normal bilaterally, external ears normal, Normal external nose present and moist oral mucous membranes HEAD & SCALP: normocephalic and atraumatic NOSE: Normal external nose present EXTERNAL EAR: Yes external ears normal Neck/C-Spine: COMMON NORMALS: no JVD Chest: COMMONS NORMALS: normal inspection of the chest and normal palpation of entire chest wall Resp: COMMON NORMALS: normal respiratory effort, No retractions, No use of accessory muscles and clear to auscultation bilaterally AUSCULTATION: clear to auscultation bilaterally Cardio: COMMON NORMALS: no JVD, regular rate, regular rhythm, S1 normal heart sound present, S2 normal heart sound present, No gallops present (Cardio), No clicks present (Cardio), No murmurs present (Cardio) and No rub (Cardio) R ATE: regular rate RHYTHM: regular rhythm HEART SOUNDS: S1 normal heart sound present and S2 normal heart sound present GI: COMMON NORMALS: Normal to inspection, nondistended, normoactive bowel sounds present, Soft to palpation, non-tender, No hepatosplenomegaly present and no masses PALPATION: Yes Soft to palpation and Yes No hepatosplenomegaly present Neuro: COMMON NORMALS: patient oriented x3 SENSORIUM/ORIENTATION: Yes alert Course 2 Vital Signs: Vital signs: Vital Signs Temperature 97.7 F 01/31/24 12:02 Pulse Rate 66 01/31/24 14:55 Respiratory Rate 14 01/31/24 12:02 Blood Pressure 138/80 01/31/24 14:55 Pulse Oximetry 98 01/31/24 14:55 Oxygen Delivery Me thod Room Air 01/31/24 14:55 MDM - Weakness Medical Decision Making Patient was bolused 2 L normal saline for an elevated lactic acid, chest x-ray and head CT were negative as well as the rest of the blood work and urinalysis. Patient was just dehydrated and had a syncopal episode. Patient be discharged home. Patient is feeling much better. Medical Records I reviewed the patient's medical records. Lab Data I reviewed the patient's lab results. 01/31/24 12:03 01/31/24 12:03 Radiology Impressions Chest X-Ray 01/31/24 12:06 IMPRESSION: No acute findings. Head CT 01/31/24 13:49 IMPRESSION: There are senescent changes of the brain as described above. No evidence for large acute ischemic infarction or acute intracranial injury. Laboratory Results WBC 9.55 10^3/uL (3.29-11.43) 01/31/24 12:03 RBC 3.97 10^6/uL (3.85-5.65) 01/31/24 12:03 Hgb 12.70 g/dL (11.27-16.99) 01/31/24 12:03 Hct 39.4 % (36-47) 01/31/24 12:03 MCV 99.2 fl (85-98) H 01/31/24 12:03 MCH 32.0 pg (27-33) 01/31/24 12:03 MCHC 32.2 g/dL (30-55) 01/31/24 12:03 RDW 13.3 % (12.1-15.1) 01/31/24 12:03 Plt Count 273 10^3/cmm (157-399) 01/31/24 12:03 MPV 10.2 fL (7.4-10.4) 01/31/24 12:03 Neut % (Auto) 78.0 % 01/31/24 12:03 Lymph % (Auto) 14.8 % 01/31/24 12:03 [place] % (Auto) 5.3 % 01/31/24 12:03 Eos % (Auto) 0.8 % 01/31/24 12:03 Baso % (Auto) 0.7 % 01/31/24 12:03 Neut # (Auto) 7.44 10^3/uL (1.8-7.7) 01/31/24 12:03 Lymph # (Auto) 1.4 10^3/uL (0.8-4.8) 01/31/24 12:03 [place] # (Auto) 0.5 10^3/uL (0.2-0.9) 01/31/24 12:03 Eos # (Auto) 0.1 10^3/uL (0.0-0.8) 01/31/24 12:03 Baso # (Auto) 0.1 10^3/uL (0.0-0.1) 01/31/24 12:03 Nucleated RBC % (auto) 0 % 01/31/24 12:03 Nucleated RBCs # 0.0 /100WBC 01/31/24 12:03 Sodium 136 mmol/L (136-145) 01/31/24 12:03 Potassium 4.4 mmol/L (3.5-5.1) 01/31/24 12:03 Chloride 102 mmol/L (98-107) 01/31/24 12:03 Carbon Dioxide 22 mmol/L (22-29) 01/31/24 12:03 Anion Gap 16.4 (5-19) 01/31/24 12:03 BUN 15 mg/dL (8-23) 01/31/24 12:03 Creatinine 0.9 mg/dL (0.5-0.9) 01/31/24 12:03 GFR Calculation Not Reportable 01/31/24 12:03 Glucose 223 mg/dL (65-115) H 01/31/24 12:03 POC Glucose 240 mg/dL (70-110) H 01/31/24 11:56 Calculated Osmolality 290 mOsm/kg (285-295) 01/31/24 12:03 Lactic Acid 4.2 mmol/L (0.5-2.2) H* 01/31/24 12:03 Lactic Acid (Sepsis) 2.7 mmol/L (0.5-2.2) H 01/31/24 15:09 Calcium 9.1 mg/dL (8.5-10.5) 01/31/24 12:03 Magnesium 2.4 mg/dL (1.7-2.3) H 01/31/24 12:03 Total Bilirubin 0.3 mg/dL (0.15-1.2) 01/31/24 12:03 AST 35 U/L (0-32) H 01/31/24 12:03 ALT 27 U/L (0-33) 01/31/24 12:03 Alkaline Phosphatase 61 U/L (35-105) 01/31/24 12:03 Troponin T Baseline 30 ng/L (0-10) H 01/31/24 12:03 Troponin T 120 Minute 23.90 ng/L (0-10) H 01/31/24 13:53 Delta Troponin T -6.10 ABS# (0-10) L 01/31/24 13:53 Total Protein 6.8 g/dL (6.6-8.7) 01/31/24 12:03 Albumin 4.2 g/dL (3.5-5.2) 01/31/24 12:03 Globulin 2.6 g/dL (1.3-4.6) 01/31/24 12:03 Procalcitonin 0.07 ng/mL (0-0.5) 01/31/24 12:03 TSH 3.43 uIU/mL (0.27-4.20) 01/31/24 12:03 Urine Color Dark yellow (Yellow) A 01/31/24 14:06 Urine Appearance Clear (CLEAR) 01/31/24 14:06 Urine pH 6.0 (5-7) 01/31/24 14:06 Ur Specific [place] 1.025 (1.005-1.030) 01/31/24 14:06 Urine Protein Trace (Negative) A 01/31/24 14:06 Urine Glucose (UA) 3+ (Normal) H 01/31/24 14:06 Urine Ketones Negative (Negative) 01/31/24 14:06 Urine Blood Negative (Negative) 01/31/24 14:06 Urine Nitrate Negative (Negative) 01/31/24 14:06 Urine Bilirubin Negative (Negative) 01/31/24 14:06 Urine Urobilinogen 1.0 mg/dL (Negative) 01/31/24 14:06 Ur Leukocyte Esterase Negative (Negative) 01/31/24 14:06 Urine RBC 0-2 /hpf (0-2) 01/31/24 14:06 Urine WBC 0-5 /hpf (0-5) 01/31/24 14:06 Ur Squamous Epith Cells 0-5 /hpf (0-5) 01/31/24 14:06 Amorphous Sediment Not Reportable 01/31/24 14:06 Urine Bacteria None seen /hpf (NONE) 01/31/24 14:06 Hyaline Casts 11.97 /lpf 01/31/24 14:06 Urine Mucus 1+ /hpf 01/31/24 14:06 All radiology interpretation(s) finalized by discharge Discharge Plan Discharge Patient Disposition: Home Clinical Impression: Syncope Condition: Stable Prescriptions: No Action fluticasone propionate 50 mcg/actuation spray,suspension 1 spray INTRANASAL BID aspirin [Adult Low Dose Aspirin] 81 mg tablet,delayed release (DR/EC) 81 mg PO DAILY Jardiance 10 mg tablet 10 mg PO QAM montelukast [Singulair] 10 mg tablet 10 mg PO ONCE nitroglycerin [Nitrostat] 0.4 mg tablet, sublingual 0.4 mg SUBLINGUAL Q5M PRN (Reason: Angina) Qty: 25 2RF Nurtec ODT 75 mg tablet,disintegrating 75 mg PO .PRN olmesartan 20 mg tablet 20 mg PO DAILY tizanidine 4 mg tablet 4 mg PO BID PRN (Reason: muscle spasticity) Qty: 60 0RF amlodipine 5 mg tablet 5 mg PO DAILY Qty: 90 3RF metoprolol succinate 50 mg tablet extended release 24 hr 50 mg PO BID Qty: 180 3RF diclofenac sodium 75 mg tablet,delayed release (DR/EC) 75 mg PO Q12H PRN (Reason: moderate to severe pain as needed) Qty: 30 1RF Hold Instructions: Resume on 02/14/23. allopurinol 300 mg tablet 300 mg PO DAILY Qty: 90 1RF prednisone 5 mg tablet See Rx Instructions PO .COMPLEX PRN (Reason: joint pain flare) Qty: 60 1RF Rx Instructions: take 1-4 tabs in a day for 3-7 days prn joint pain flare orally PRN; sulfasalazine 500 mg tablet 1 g PO BID Qty: 360 1RF Rx Instructions: give with food (meal/snack) pregabalin [Lyrica] 75 mg capsule 75 mg PO BID Qty: 180 1RF acetaminophen-codeine 300-30 mg tablet 1 tab PO Q8H PRN (Reason: joint pain (scale score 7-10)) Qty: 60 1RF Cimzia 200 mg/mL syringe kit 200 mg SUBCUT Q14D Qty: 1 3RF pantoprazole [Protonix] 40 mg tablet,delayed release (DR/EC) 40 mg PO DAILY 42 Days 3RF Discharge Orders: Discharge ED (Routine); Ordered 01/31/24 Ordered By: Luis Enrique Duron Referrals: Beasley,Juliet, SHELVING SUPERVISOR [Primary Care Provider] - 1 week Patient Instructions: Hypotension (ED), Syncope (DC), Dehydration - Adult Activity Restrictions/Additional Instructions: Thank you for choosing [facility] for your healthcare needs today. Please realize that you were seen in the emergency department and that we are providing you with an emergency medical screening exam and this may not be a complete and all exclusive of all testing and/or medical workup we may need to determine your element or severity of your illness. It is very important that you follow-up as instructed with your primary care provider or specialist for the additional evaluation and to discuss your medical treatment plan. You may return to the emergency department should you have concerns or if your condition changes or worsens in any way. Coding Level of Care Code ED Food Vendor for Chg Fwd Related Data Home Medications Medication Instructions Recorded Confirmed aspirin 81 mg tablet,delayed 81 mg PO DAILY 03/29/19 01/31/24 release (Adult Low Dose Aspirin) empagliflozin 10 mg tablet 10 mg PO QAM 03/29/19 01/31/24 (Jardiance) fluticasone propionate 50 1 spray intranasal BID 03/29/19 01/31/24 mcg/actuation nasal spray,suspension montelukast 10 mg tablet 10 mg PO ONCE 03/29/19 01/31/24 (Singulair) rimegepant 75 mg disintegrating 75 mg PO .PRN 02/02/20 01/31/24 tablet (Nurtec ODT) olmesartan 20 mg tablet 20 mg PO DAILY 03/27/20 01/31/24 Previous Rx's Medication Instructions Recorded pantoprazole 40 mg tablet,delayed 40 mg PO DAILY 6 weeks 05/23/20 release (Protonix) nitroglycerin 0.4 mg sublingual 0.4 mg sublingual Q5M PRN Angina 09/21/20 tablet (Nitrostat) #25 tabs tizanidine 4 mg tablet 4 mg PO BID PRN muscle spasticity 05/22/22 #60 tabs diclofenac sodium 75 mg 75 mg PO Q12H PRN moderate to 09/19/22 tablet,delayed release severe pain as needed #30 tabs metoprolol succinate 50 mg 50 mg PO BID #180 tabs 12/17/22 tablet,extended release 24 hr amlodipine 5 mg tablet 5 mg PO DAILY #90 tabs 06/17/23 acetaminophen 300 mg-codeine 30 mg 1 tab PO Q8H PRN joint pain (scale 01/19/24 tablet score 7-10) #60 tabs allopurinol 300 mg tablet 300 mg PO DAILY #90 tabs 01/19/24 prednisone 5 mg tablet See Rx Instructions PO .COMPLEX 01/19/24 PRN joint pain flare #60 tabs pregabalin 75 mg capsule (Lyrica) 75 mg PO BID #180 caps 01/19/24 sulfasalazine 500 mg tablet 1 g (2 x 500 mg) PO BID #360 tabs 01/19/24 certolizumab pegol 200 mg/mL 200 mg SUBCUT Q14D #1 ea 01/20/24 subcutaneous syringe kit (Cimzia) Allergies Allergy/AdvReac Type Severity Reaction Status Date / Time No Known Allergies Allergy Verified 01/19/24 10:35
[2024-01-31 12:12] LABS: Basophils # 0.1 10^3/uL (0.0-0.1); Basophils % 0.7 %; Eosinophils # 0.1 10^3/uL (0.0-0.8); Eosinophils % 0.8 %; Hematocrit 39.4 % (36-47); Lymphocytes # 1.4 10^3/uL (0.8-4.8); Lymphocytes % 14.8 %; Mean Corpuscular HGB Conc 32.2 g/dL (30-55); Mean Corpuscular Volume 99.2 fl (85-98); Mean Platelet Volume 10.2 fL (7.4-10.4); Monocytes # 0.5 10^3/uL (0.2-0.9); Monocytes % 5.3 %; Neutrophils # 7.44 10^3/uL (1.8-7.7); Nucleated Red Blood Cells % 0 %; Platelet Count 273 10^3/cmm (157-399); Red Blood Count 3.97 10^6/uL (3.85-5.65); Red Cell Distribution Width 13.3 % (12.1-15.1); White Blood Count 9.55 10^3/uL (3.29-11.43)
[2024-01-31] MEDS: sodium chloride 0.9% 1,000 ML 999 ML IV ×2 (12:23→14:16)
[2024-01-31 12:28] LABS: Troponin(5th) Baseline 30 ng/L (0-10)
[2024-01-31 12:33] LABS: Magnesium 2.4 mg/dL (1.7-2.3)
[2024-01-31 12:34] LABS: Lactic Sepsis W/Reflex 4.2 mmol/L (0.5-2.2)
[2024-01-31 12:36] LABS: Alanine Aminotransferase 27 U/L (0-33); Albumin Level 4.2 g/dL (3.5-5.2); Alkaline Phosphatase 61 U/L (35-105); Anion Gap 16.4 (5-19); Aspartate Amino Transferase 35 U/L (0-32); Blood Urea Nitrogen 15 mg/dL (8-23); Calcium 9.1 mg/dL (8.5-10.5); Carbon Dioxide 22 mmol/L (22-29); Chloride 102 mmol/L (98-107); Globulin 2.6 g/dL (1.3-4.6); Glucose 223 mg/dL (65-115); Osmolality Calculated 290 mOsm/kg (285-295); Potassium 4.4 mmol/L (3.5-5.1); Sodium 136 mmol/L (136-145); Thyroid Stimulating Hormone 3.43 uIU/mL (0.27-4.20); Total Bilirubin 0.3 mg/dL (0.15-1.2); Total Protein 6.8 g/dL (6.6-8.7)
[2024-01-31 12:41] LABS: Procalcitonin 0.07 ng/mL (0-0.5)
--- NOTE | 2024-01-31 13:49 | CTR_ITS ---
PROCEDURE INFORMATION: Exam: CT Head Without Contrast Exam date and time: 01/31/2024 2:11 PM Age: 73 years old Clinical indication: Syncope and collapse and visual disturbance; TECHNIQUE: Imaging protocol: Computed tomography of the head without contrast. Radiation optimization: All CT scans at this facility use at least one of these dose optimization techniques: automated exposure control; mA and/or kV adjustment per patient size (includes targeted exams where dose is matched to clinical indication); or iterative reconstruction. COMPARISON: MR cervical spin wo con* [id number] 06/19/2022 2:18 PM RADIATION DOSE METRICS: Total DLP (mGy-cm): 1128.78 FINDINGS: Brain: There is mild diffuse cerebral atrophy present, consistent with this patient's age. Periventricular and subcortical white matter low densities are present which at this age likely represent microvascular ischemic change. No evidence for large acute ischemic infarction. Please note acute ischemia can be occult by head CT. No evidence for acute intracranial hemorrhage. Calcified plaque is present within the intracranial vasculature. Cerebral ventricles: No ventriculomegaly. Paranasal sinuses: There is mild mucosal thickening in the right maxillary sinus. Mastoid air cells: Visualized mastoid air cells are well aerated. Bones: Hyperostosis frontalis. Soft tissues: Unremarkable. CT/CT head wo con* [id number] IMPRESSION: There are senescent changes of the brain as described above. No evidence for large acute ischemic infarction or acute intracranial injury.
[2024-01-31 14:00] LABS: Reflex Lactate Order REFLEX LACTIC ORDERD
--- NOTE | 2024-01-31 14:06 | ECG_ITS ---
[facility] Test Date: 2024-01-31 Pat Name: Kelin Mcmanus Department: Room: Gender: Female Head Irrigator: : 1950 Requested By: Luis Enrique Duron Order Number: [id number] Danitza MD: Gil Esqueda M.D. Measurements Intervals [place] Rate: 60 P: 36 IN: 220 QRS: -8 QRSD: 82 T: 35 QT: 489 QTc: 492 Interpretive Statements SINUS RHYTHM WITH FIRST DEGREE AV BLOCK LOW QRS VOLTAGE IN PRECORDIAL LEADS [QRS DEFLECTION < 1.0 mV IN CHEST LEADS] POSSIBLE ANTERIOR MYOCARDIAL INFARCTION , OF INDETERMINATE AGE [30 ms Q WAVE IN V3/V4, OR R < 0.2 mV IN V4] Compared to ECG 01/31/2024 11:51:23 First degree AV block now present Myocardial infarct finding still present Electronically Signed On 02-01-2024 20:42:04 TAGMAN by Gil Esqueda M.D. [email or web address]
[2024-01-31 14:19] LABS: Bilirubin Urine Negative (Negative); Blood Urine Negative (Negative); Glucose Urine UA 3+ (Normal); Ketones Urine Negative (Negative); Leukocyte Esterase Urine Negative (Negative); Nitrate Urine Negative (Negative); Protein Urine Trace (Negative); Specific Gravity, Urine 1.025 (1.005-1.030); Urine Appearance Clear (CLEAR); Urine Color Dark Yellow (Yellow)
[2024-01-31 14:21] LABS: Add Urine Microscopic? YES; Bacteria Urine None Seen /hpf; Hyaline Casts Urine 11.97 /lpf; RBC Urine 0-2 /hpf (0-2); Squamous Epithelial Cell Urine 0-5 /hpf (0-5); WBC Urine 0-5 /hpf (0-5)
[2024-01-31 14:31] LABS: Mucus Urine 1+ /hpf; UA Slide Review UA Slide Review Perf
[2024-01-31 14:55] VITALS: BP 138/80; PULSE 66; O2SAT 98
[2024-01-31 15:30] LABS: Lactic Acid level (Lactate) 2.7 mmol/L (0.5-2.2)
[2024-01-31 16:01] VITALS: BP 142/74; PULSE 67; O2SAT 95
[2024-01-31 16:19] VITALS: BP 149/86; PULSE 70; O2SAT 100
== END 2024-01-31 16:33 | disposition home or self-care (01) ==
PROVIDERS: Emergency Medicine; Emergency Provider Emergency Medicine; PCP Nurse Practitioner Family
DX: R55 Syncope and collapse (principal); E11.9 Type 2 diabetes mellitus without complications; I10 Essential (primary) hypertension; E78.5 Hyperlipidemia, unspecified; I25.10 Atherosclerotic heart disease of native coronary artery without angina pectoris; Z95.818 Presence of other cardiac implants and grafts
CPT/HCPCS: 36415; 36416; 70450; 71045; 80053; 81001; 82962; 83605; 83735; 84145; 84443; 84484; 85025; 93005; 99285; J7030

== ENCOUNTER 2024-02-26 11:36 | Outpatient (CLI) | payer MEDICARE, OTHER, SELFPAY ==
--- NOTE | 2024-02-26 11:20 | MM_ITS ---
WS: [id number] BILATERAL SCREENING DIGITAL TOMOSYNTHESIS MAMMOGRAM WITH CAD HISTORY: SCREENING COMPARISON: 08/22/2022, 11/03/2018 Bilateral CC and MLO views with tomosynthesis and synthetic mammography submitted. Computer aided det ection analyzed. Breast composition: The breasts are extremely dense, which lowers the sensitivity of mammography. No suspicious masses, microcalcifications or architectural distortion. Scattered asymmetries and partial ly obstructed nodules and numerous benign-appearing calcifications within each breast. No interval ch talisha. No adverse change since 08/22/2022 and 11/03/2018. MM/MM scr BI tomosynthesis [id number] IMPRESSION: BI-RADS: 2 - Benign FOLLOW UP: 1 Year Follow-up
== END 2024-02-26 11:37 | disposition home or self-care (01) ==
LOC: MOBLMAM 11:37
PROVIDERS: PCP Nurse Practitioner Family; Visit Provider Nurse Practitioner Family
DX: Z12.31 Encounter for screening mammogram for malignant neoplasm of breast (principal); R92.333 Mammographic heterogeneous density, bilateral breasts; N64.89 Other specified disorders of breast; R92.1 Mammographic calcification found on diagnostic imaging of breast
CPT/HCPCS: 77063; 77067

== ENCOUNTER → 2024-05-19 07:37 | Outpatient (BNVA) | payer MEDICARE, OTHER, SELFPAY | PROVIDERS: PCP Nurse Practitioner Family; Referring Provider Internal Medicine Rheumatology; Visit Provider Psychiatry & Neurology Neurology | DX: G43.111 Migraine with aura, intractable, with status migrainosus (principal); G43.709 Chronic migraine without aura, not intractable, without status migrainosus; R55 Syncope and collapse; M79.641 Pain in right hand; M79.642 Pain in left hand; R20.2 Paresthesia of skin; M79.601 Pain in right arm; M79.602 Pain in left arm; M79.671 Pain in right foot; M79.672 Pain in left foot; M25.511 Pain in right shoulder | CPT/HCPCS: 82306; 82746; 99203 ==

== ENCOUNTER 2024-06-03 08:12 | Outpatient (CLI) | payer MEDICARE, OTHER, SELFPAY ==
--- NOTE | 2024-06-03 08:30 | MR_ITS ---
WS: [id number] MRI HEAD WITH CONTRAST TECHNIQUE: Sagittal T1, T2 axial, T2 axial FLAIR, axial susceptibility weighted imaging, axial diffusion weighted images, and coronal T2 images were obtained. Pre and post-T1 axial and post T1 coronal images. ADC and FSPGR images. CLINICAL INFORMATION: G43.709 - Chronic migraine without aura, not intractable,... COMPARISON: CT 2023 FINDINGS: No evidence of restricted diffusion to suggest acute ischemia. Ventricular system and basilar cisterns are patent. Moderate small vessel changes. Mild parenchymal volume loss. RIGHT mastoid effusion. Chronic lacunar infarct RIGHT cerebellum. Normal vascular flow voids at the skull base. No ex tra-axial fluid collections. Paranasal sinuses are well aerated. Normal posterior nasopharynx. Small vessel changes in the moise. No hemosiderin on the susceptibility weighted images. Mild symmetric atrophy temporal lobes hippocampal formations. Normal optic chiasm. No abnormal gadolinium enhancement. Hyperostosis frontalis is seen on the recent CT. Enhancing lesions in the frontal calvarium. On the prior CT 01/31/2024 there is dense hyperostosis in this area with coarse bony trabeculation but no definite lytic or destructive lesions. Recommend interval follow-up with noncontrast chest CT to assess for change. The largest in the RIGHT frontal calvarium measuring 2.1 cm MR/MR head wo/w con [id number] IMPRESSION: 1. No evidence of restricted diffusion to suggest acute ischemia. 2. Moderate patchy supratentorial small vessel changes. Mild small vessel hale ges in the moise. Mild parenchymal volume loss. 3. RIGHT mastoid effusion. 4. No hemosiderin on the susceptibly weighted images. 5. Mild symmetric atrophy temporal lobes to the Rao formations. 6. No abnormal gadolinium enhancement. 7. Enhancing frontal calvarial lesions largest on the RIGHT measuring 2.1 cm. Recommend further evaluation with noncontrast head CT to assess for lytic lesio ns in this location. No definite lesions visualized on the prior head CT 2023. These may represent atypical hemangiomas but technically indeterminant. H yperostosis frontalis
--- NOTE | 2024-06-03 09:15 | MR_ITS ---
WS: [id number] MRA CAROTID WITHOUT AND WITH GADOLINIUM ENHANCEMENT TECHNIQUE: Axial 2-D TOF and gadolinium bolus images obtained with axial images and axial, sagittal, and coronal 2-D reformatted images. CLINICAL INFORMATION: G43.709 - Chronic migraine without aura, not intractable,... COMPARISON: None. FINDINGS: Images degraded due to respiratory artifact and shoulder overlap RIGHT: RIGHT common carotid artery is patent. No significant RIGHT ICA stenosis. RIGHT ICA is patent to the skull base. LEFT: LEFT common carotid artery is patent. No significant LEFT ICA stenosis. LEFT ICA is patent to the skull base. RIGHT dominant vertebral artery crosses to the LEFT intracranially. No significant contribution from the LEFT vertebral artery. Severe stenosis LEFT proximal subclavian artery approximately 2.5 cm from the origin. Bovine arch configuration. Moderate to severe short segment stenosis RIGHT intracranial vertebral artery which remains patent. MR/MR angio neck w con* [id number] IMPRESSION: 1. No significant cervical ICA stenosis. 2. RIGHT dominant vertebral artery with moderate to severe short segment intra cranial stenosis which remains patent. 3. Severe stenosis LEFT proximal subclavian artery which remains patent. This is proximal to the takeoff of the LEFT vertebral artery. 4. No significant flow in the LEFT vertebral artery on the gadolinium bolus im ages regardless. Ultrasound could be obtained to evaluate for LEFT vertebral ar kennedy steal but this is probably chronically hypoplastic or occluded based on ti [id number] and gadolinium bolus imaging.
[2024-06-03] MEDS: gadobenate dimeglumine 20 mL vial IV (09:28)
--- NOTE | 2024-06-03 10:00 | MR_ITS ---
WS: [id number] MRA HEAD TECHNIQUE: Axial 3-D TOF images obtained with axial images and axial, sagittal, and coronal 2-D reformatted images. CLINICAL INFORMATION: G43.709 - Chronic migraine without aura, not intractable,... COMPARISON: None. FINDINGS Moderate intracranial atheromatous disease. Dominant distal RIGHT vertebral artery crosses to the LEFT intracranially. Basilar artery is patent. Normal vascularity to the WEB MERCHANT territory bilaterally. Persistent RIGHT [employer]. Moderate segmental stenosis LEFT P2 segment. Both ICAs are patent at the skull base. Absent RIGHT A1 segment. Normal vascularity to the SARA and MCA territories bilaterally. No evidence of proximal flow-limiting stenosis. MR/MR angio head wo con [id number] IMPRESSION: 1. Moderate intracranial atheromatous disease. 2. Moderate segmental stenosis LEFT P2 segment. 3. Distal vessel remains patent.
== END 2024-06-03 08:13 | disposition home or self-care (01) ==
PROVIDERS: PCP Nurse Practitioner Family; Visit Provider Psychiatry & Neurology Neurology
DX: G43.709 Chronic migraine without aura, not intractable, without status migrainosus (principal); R55 Syncope and collapse; I67.2 Cerebral atherosclerosis; I66.22 Occlusion and stenosis of left posterior cerebral artery; I65.01 Occlusion and stenosis of right vertebral artery; I70.8 Atherosclerosis of other arteries; R93.0 Abnormal findings on diagnostic imaging of skull and head, not elsewhere classified; G31.89 Other specified degenerative diseases of nervous system; H74.8X1 Other specified disorders of right middle ear and mastoid; M85.2 Hyperostosis of skull; M89.9 Disorder of bone, unspecified
CPT/HCPCS: 70544; 70548; 70553

== ENCOUNTER → 2024-06-22 10:43 | Outpatient (BNVA) | payer MEDICARE, OTHER, SELFPAY | PROVIDERS: PCP Nurse Practitioner Family; Visit Provider Nurse Practitioner Family | DX: R00.0 Tachycardia, unspecified (principal); I10 Essential (primary) hypertension; I25.10 Atherosclerotic heart disease of native coronary artery without angina pectoris | CPT/HCPCS: 99214 ==

== ENCOUNTER → 2024-07-20 11:34 | Outpatient (BNVA) | payer MEDICARE, OTHER, SELFPAY | PROVIDERS: PCP Nurse Practitioner Family; Referring Provider Psychiatry & Neurology Neurology; Visit Provider Psychiatry & Neurology Neurology | DX: R55 Syncope and collapse (principal) | CPT/HCPCS: 95813; 95913 ==

== ENCOUNTER → 2024-08-11 13:58 | Outpatient (BNVA) | payer MEDICARE, OTHER, SELFPAY | PROVIDERS: PCP Nurse Practitioner Family; Referring Provider Internal Medicine Rheumatology; Visit Provider Psychiatry & Neurology Neurology | DX: G43.709 Chronic migraine without aura, not intractable, without status migrainosus (principal); R55 Syncope and collapse; Z79.891 Long term (current) use of opiate analgesic; D64.9 Anemia, unspecified; G62.9 Polyneuropathy, unspecified; M75.41 Impingement syndrome of right shoulder; G43.909 Migraine, unspecified, not intractable, without status migrainosus; R93.89 Abnormal findings on diagnostic imaging of other specified body structures; M25.819 Other specified joint disorders, unspecified shoulder; G56.00 Carpal tunnel syndrome, unspecified upper limb; I77.1 Stricture of artery; G43.111 Migraine with aura, intractable, with status migrainosus; M79.641 Pain in right hand; M79.642 Pain in left hand; R20.2 Paresthesia of skin; M79.601 Pain in right arm; M79.602 Pain in left arm; M79.671 Pain in right foot; M79.672 Pain in left foot; M25.511 Pain in right shoulder | CPT/HCPCS: 36415; 82607; 83921; 99212 ==

== ENCOUNTER 2024-08-17 14:31 | Outpatient (CLI) | payer MEDICARE, OTHER, SELFPAY | END 2024-08-17 14:32 | disposition home or self-care (01) | LOC: LAB 08-18 08:09 | PROVIDERS: PCP Nurse Practitioner Family; Visit Provider Psychiatry & Neurology Neurology | DX: Z79.899 Other long term (current) drug therapy (principal); M45.9 Ankylosing spondylitis of unspecified sites in spine; Z71.89 Other specified counseling; M54.12 Radiculopathy, cervical region; Z15.89 Genetic susceptibility to other disease | CPT/HCPCS: 36415; 80076; 82565; 85025; 85651; 86140; 99214 ==

== ENCOUNTER → 2024-08-24 10:43 | Outpatient (BNVA) | payer MEDICARE, OTHER, SELFPAY | PROVIDERS: PCP Nurse Practitioner Family; Visit Provider Physician Assistant | DX: G56.03 Carpal tunnel syndrome, bilateral upper limbs (principal) | CPT/HCPCS: 73130; 99213 ==

== ENCOUNTER 2024-09-23 11:13 | Outpatient (CLI) | payer MEDICARE, OTHER, SELFPAY ==
--- NOTE | 2024-09-23 11:20 | XRR_ITS ---
PROCEDURE INFORMATION: Exam: XR Lumbosacral Spine Exam date and time: 09/23/2024 11:33 AM Age: 73 years old Clinical indication: Injury or trauma; Blunt trauma (contusions or hematomas); Injury details: --fall x 1 hour, pain in lower back across upper hips; Prior surgery; Surgery date: 6+ months; Surgery type: Cervical fusion, discectomy; Additional info: Back pain TECHNIQUE: Imaging protocol: Radiologic exam of the lumbosacral spine. Views: 4 or 5 views. COMPARISON: OT XR lumbar spine 1V [id number] 08/08/2021 8:27 AM FINDINGS: Bones/joints: The lumbar spine demonstrates marked discogenic and apophyseal joint degenerative changes at multiple levels. Grade 1 L4-L5 spondylolisthesis. Negative for acute fractures. Soft tissues: Unremarkable. Organs: Cholecystectomy. XR/XR lumbar spine min 4V [id number] IMPRESSION: 1. Negative for acute lumbar spine pathology. 2. Severe diffuse spondylosis with no significant changes.
== END 2024-09-23 11:14 | disposition home or self-care (01) ==
LOC: RAD 11:16
PROVIDERS: PCP Nurse Practitioner Family; Visit Provider Nurse Practitioner Family
DX: M47.816 Spondylosis without myelopathy or radiculopathy, lumbar region (principal)
CPT/HCPCS: 72110

== ENCOUNTER → 2024-11-04 10:05 | Outpatient (BNVA) | payer MEDICARE, OTHER, SELFPAY | PROVIDERS: PCP Nurse Practitioner Family; Visit Provider Internal Medicine Rheumatology | DX: Z79.899 Other long term (current) drug therapy (principal); Z79.891 Long term (current) use of opiate analgesic; Z15.89 Genetic susceptibility to other disease; M45.9 Ankylosing spondylitis of unspecified sites in spine; Z71.85 Encounter for immunization safety counseling; M54.12 Radiculopathy, cervical region | CPT/HCPCS: 36415; 80076; 82306; 82565; 85025; 85651; 86140; 86480; 86704; 86803; 87340; 99214 ==

== ENCOUNTER → 2024-11-05 07:53 | Outpatient (BNVA) | payer MEDICARE, OTHER, SELFPAY | PROVIDERS: PCP Nurse Practitioner Family; Visit Provider Student in an Organized Health Care Education/Training Program | DX: Z12.11 Encounter for screening for malignant neoplasm of colon (principal); R12 Heartburn | CPT/HCPCS: 99024; 99204 ==

== ENCOUNTER → 2024-11-24 09:49 | Day surgery (SDC) | payer MEDICARE, OTHER, SELFPAY ==
[2024-11-24 10:16] VITALS: BP 167/106; PULSE 83; RESP 18; TEMP 36.8; O2SAT 96; BMI 36.2
--- NOTE | 2024-11-24 11:12 | PC.NURSE ---
Cancel due to no anesthesia provider on site.
== END ==
LOC: GILAB 09:51
PROVIDERS: PCP Nurse Practitioner Family; Visit Provider Student in an Organized Health Care Education/Training Program
PROC: 0DJ08ZZ Inspection of Upper Intestinal Tract, Via Natural or Artificial Opening Endoscopic (ICD-10-PCS; principal; 2024-11-24 11:30)
PROC: 0DJD8ZZ Inspection of Lower Intestinal Tract, Via Natural or Artificial Opening Endoscopic (ICD-10-PCS; CPT 45378; 2024-11-24 11:30)
DX: Z53.8 Procedure and treatment not carried out for other reasons (principal)
CPT/HCPCS: 36416; 82962; J7030

== ENCOUNTER 2024-12-07 09:01 | Day surgery (SDC) | payer MEDICARE, OTHER, SELFPAY ==
[2024-12-07 09:27] VITALS: BP 156/91; PULSE 84; RESP 18; TEMP 36.1; O2SAT 97
[2024-12-07 09:28] VITALS: BMI 36.2
--- NOTE | 2024-12-07 10:23 | ANES.PREANE2 ---
Pre-Anesthetic Assessment Height/Weight: Height 1.57 m Weight 89.811 kg Temp Pulse Resp BP Pulse Ox O2 Del Method 97.0 F L 84 18 156/91 97 Room Air 12/07/24 09:27 12/07/24 09:27 12/07/24 09:27 12/07/24 09:27 12/07/24 09:27 12/07/24 09:27 Preop Diagnosis: screen Operation Date: 12/07/24 10:30 Proposed Procedures p EGD EGD with Biopsy [id number] G0105 R12 Z12.11(Not Applicable) - Kush Lopes MD s Colonoscopy(Not Applicable) - Kush Lopes MD Familial anesthetic complications: none Was Beta Kristina taken within 24 hours: N/A Was Clonidine taken within 24 hours: N/A Last intake: Intake Last Liquid Date 12/06/24 Last Solid Date 12/05/24 Social No alcohol and No tobacco Exam alert, oriented x 3, clear to auscultation bilaterally and regular rate & rhythm Airway Submandibular: within normal limits Cervical ROM: within normal limits Mallampati: Class III History/ROS No significant history except as noted Pulmonary None reported CV/HEM Coronary Artery Disease (stents 3 years ago), Hypertension and Myocardial Infarction (3 years ago) None reported GI None reported Musc/skel None reported (chronic pain) Neuropsych None reported Anesthetic Plan ASA status: 3 Anesthesia: MAC Risk of > 500 ml blood loss (7ml/kg in children): No Medications/Allergies Home Medications ?Medication ?Instructions ?Recorded ?Confirmed ?Last Taken ?Type aspirin 81 mg tablet,delayed 81 mg PO DAILY 03/29/19 12/02/24 12/06/24 History release (Adult Low Dose Aspirin) empagliflozin 10 mg tablet 10 mg PO QAM 03/29/19 12/02/24 12/06/24 History (Jardiance) fluticasone propionate 50 1 spray intranasal BID PRN 03/29/19 12/02/24 12/06/24 History mcg/actuation nasal Congestion spray,suspension montelukast 10 mg tablet 10 mg PO DAILY 03/29/19 12/02/24 12/06/24 History (Singulair) rimegepant 75 mg disintegrating 75 mg PO .PRN 02/02/20 12/02/24 12/02/24 History tablet (Nurtec ODT) olmesartan 20 mg tablet 20 mg PO DAILY 03/27/20 12/02/24 12/06/24 History pantoprazole 40 mg tablet,delayed 40 mg PO DAILY 6 weeks 05/23/20 12/02/24 12/06/24 Rx release (Protonix) nitroglycerin 0.4 mg sublingual 0.4 mg sublingual Q5M PRN Angina 09/21/20 12/07/24 Unknown Rx tablet (Nitrostat) #25 tabs tizanidine 4 mg tablet 4 mg PO BID PRN muscle spasticity 05/22/22 12/02/24 12/06/24 Rx #60 tabs acetaminophen 300 mg-codeine 30 mg 1 tab PO Q8H PRN joint pain (scale 01/19/24 12/02/24 12/06/24 Rx tablet score 7-10) #60 tabs amlodipine 5 mg tablet 5 mg PO DAILY #90 tabs 06/22/24 12/07/24 12/07/24 Rx metoprolol succinate 25 mg 25 mg PO DAILY #90 tabs 06/22/24 12/02/24 12/07/24 Rx tablet,extended release 24 hr folic acid 1 mg tablet 1 mg PO DAILY #30 tabs 08/11/24 12/02/24 12/06/24 Rx rosuvastatin 20 mg tablet 20 mg PO DAILY 30 days #30 tabs 08/11/24 12/02/24 12/06/24 Rx allopurinol 300 mg tablet 300 mg PO DAILY #90 tabs 11/04/24 12/02/24 12/06/24 Rx pregabalin 150 mg capsule 150 mg PO BID #180 caps 11/04/24 12/02/24 12/06/24 Rx tofacitinib 5 mg tablet (Xeljanz) 5 mg PO BID #60 tabs 11/04/24 12/02/24 12/06/24 Rx ondansetron 8 mg disintegrating 8 mg PO Q8H PRN nausea and 11/05/24 12/02/24 12/02/24 Rx tablet vomiting #3 tabs sulfasalazine 500 mg tablet 500 mg PO DAILY 11/05/24 12/02/24 12/06/24 History cholecalciferol (vitamin D3) 50 50 mcg PO DAILY 12/02/24 12/02/2425 History mcg (2,000 unit) capsule (Vitamin D3) potassium 99 mg tablet 99 mg PO DAILY 12/02/24 12/02/24 12/06/24 History Allergies Allergy/AdvReac Type Severity Reaction Status Date / Time No Known Allergies Allergy Verified 12/07/24 09:14 Current Medications Generic Name Dose Route Start Last Admin Trade Name Freq PRN Reason Stop Dose Admin Sodium Chloride 1,000 mls @ 15 mls/hr 12/07/24 09:08 12/07/24 09:21 Sodium Chloride 0.9% IV 12/08/24 09:07 15 mls/hr .Q24H PRN Administration COLONOSCOPY FLUIDS PFSH Anesthesia Medical History (Updated 11/05/24 @ 08:59 by Kush Lopes MD) Cervical radiculopathy Immunization counseling Colon polyps Gastritis HLA B27 (HLA B27 positive) Ankylosing spondylitis Sacroiliitis Hip pain, right Joint instability Depression Inflammatory arthritis History of acute anterior wall myocardial infarction CAD (coronary artery disease) Dyslipidemia Essential hypertension Diabetes mellitus Chronic radicular low back pain Fusion of spine, cervical region Lumbosacral radiculopathy Fibromyalgia Facet joint disease of cervical region Back pain, lumbosacral Chronic migraine Surgical History H/O esophagogastroduodenoscopy (05/23/20) History of colonoscopy (05/23/20) Presence of stent in anterior descending branch of left coronary artery S/p bilateral carpal tunnel release S/P cholecystectomy S/P discectomy S/P hysterectomy S/P cervical spinal fusion c4-c5, c5-c6-08/29/2009 C6-7 01/10/2023 Family History Father Cancer Hypertension Diabetes Sister Cancer Social History Smoking and tobacco/nicotine status: never used tobacco/nicotine Second hand smoke exposure: Yes Alcohol intake: never Substance/Drug Use: never Marital status: / Data Anesthesia Cardiac Studies: Echocardiogram 12/26/22 Echocardiogram Ultrasound 01/28/24 Sestamibi Stress Test (Cardiology) 11/16/20
--- NOTE | 2024-12-07 10:24 | W.PM.OPSFHP ---
Same Day Surgery H&P Indication for Procedure/HPI DATE OF PROCEDURE: December 07, 2024 CHIEF COMPLAINT/INDICATIONFOR SURGICAL PROCEDURE: screening colonoscopy, heartburn PREOP DIAGNOSIS: screening colonoscopy, heartburn PLANNED PROCEDURE: Operation Date: 12/07/24 10:30 Proposed Procedures p EGD EGD with Biopsy [id number] G0105 R12 Z12.11(Not Applicable) - Kush Lopes MD s Colonoscopy(Not Applicable) - Kush Lopes MD Medications/Allergies* Home Medications ?Medication ?Instructions ?Recorded ?Confirmed ?Type aspirin 81 mg tablet,delayed 81 mg PO DAILY 03/29/19 12/02/24 History release (Adult Low Dose Aspirin) empagliflozin 10 mg tablet 10 mg PO QAM 03/29/19 12/02/24 History (Jardiance) fluticasone propionate 50 1 spray intranasal BID PRN 03/29/19 12/02/24 History mcg/actuation nasal Congestion spray,suspension montelukast 10 mg tablet 10 mg PO DAILY 03/29/19 12/02/24 History (Singulair) rimegepant 75 mg disintegrating 75 mg PO .PRN 02/02/20 12/02/24 History tablet (Nurtec ODT) olmesartan 20 mg tablet 20 mg PO DAILY 03/27/20 12/02/24 History sulfasalazine 500 mg tablet 500 mg PO DAILY 11/05/24 12/02/24 History cholecalciferol (vitamin D3) 50 50 mcg PO DAILY 12/02/24 12/02/24 History mcg (2,000 unit) capsule (Vitamin D3) potassium 99 mg tablet 99 mg PO DAILY 12/02/24 12/02/24 History Allergies/Adverse Reactions Allergy/AdvReac Type Severity Reaction Status Date / Time No Known Allergies Allergy Verified 12/07/24 09:14 Current Medications: Generic Name Dose Route Start Last Admin Trade Name Freq PRN Reason Stop Dose Admin Sodium Chloride 1,000 mls @ 15 mls/hr 12/07/24 09:08 12/07/24 09:21 Sodium Chloride 0.9% IV 12/08/24 09:07 15 mls/hr .Q24H PRN Administration COLONOSCOPY FLUIDS Pertinent History/Comorbid Conditions* Medical History (Updated 11/05/24 @ 08:59 by Kush Lopes MD) Cervical radiculopathy Immunization counseling Colon polyps Gastritis HLA B27 (HLA B27 positive) Ankylosing spondylitis Sacroiliitis Hip pain, right Joint instability Depression Inflammatory arthritis History of acute anterior wall myocardial infarction CAD (coronary artery disease) Dyslipidemia Essential hypertension Diabetes mellitus Chronic radicular low back pain Fusion of spine, cervical region Lumbosacral radiculopathy Fibromyalgia Facet joint disease of cervical region Back pain, lumbosacral Chronic migraine Surgical History (Updated 04/19/23 @ 00:00 by JACQUELYN Jose) H/O esophagogastroduodenoscopy (05/23/20) History of colonoscopy (05/23/20) Presence of stent in anterior descending branch of left coronary artery S/p bilateral carpal tunnel release S/P cholecystectomy S/P discectomy S/P hysterectomy S/P cervical spinal fusion c4-c5, c5-c6-08/29/2009 C6-7 01/10/2023 Family History (Updated 03/29/19 @ 10:31 by CITLALLI Eduardo) Diabetes Father Cancer Father Sister Hypertension Father Social History Smoking and tobacco/nicotine status: never used tobacco/nicotine Second hand smoke exposure: Yes Alcohol intake: never Substance/Drug Use: never Marital status: / Pertinent Exam Findings alert, oriented x 3, clear to auscultation bilaterally, regular rate & rhythm and procedure specific exam findings abdomen soft, nt, nd Recommendations Risks and benefits of procedure reviewed and Patient/family agree to proceed Surgery/Procedure today Coding Level of Care Code Acute Code for Latosha Vidal
[2024-12-07 10:56] VITALS: BP 94/65; PULSE 78; RESP 10; TEMP 36.1; O2SAT 95
[2024-12-07 11:09] VITALS: BP 112/79; PULSE 76; RESP 14; O2SAT 97
[2024-12-07 11:25] VITALS: BP 152/77; PULSE 79; RESP 18; O2SAT 98
--- NOTE | 2024-12-07 11:40 | ANE.PACU2 ---
Inpatient post-anesthesia follow up: Airway intact: Yes Vital signs: Temperature 97 F Pulse Rate 79 Respiratory Rate 18 Blood Pressure 152/77 Pulse Oximetry 98 Oxygen Delivery Me thod Room Air Oxygen Flow Rate Fraction of Inspir ed Oxygen Hydration adequate: Yes Nausea and vomiting: No Pain level: 1 Mental status: Baseline
== END 2024-12-07 11:40 | disposition home or self-care (01) ==
PROVIDERS: PCP Nurse Practitioner Family; Visit Provider Student in an Organized Health Care Education/Training Program
PROC: 0DJ08ZZ Inspection of Upper Intestinal Tract, Via Natural or Artificial Opening Endoscopic (ICD-10-PCS; principal; 2024-12-07 10:30)
PROC: 0DJD8ZZ Inspection of Lower Intestinal Tract, Via Natural or Artificial Opening Endoscopic (ICD-10-PCS; CPT 45378; 2024-12-07 10:30)
DX: Z12.11 Encounter for screening for malignant neoplasm of colon (principal); R12 Heartburn; K57.30 Diverticulosis of large intestine without perforation or abscess without bleeding; K63.5 Polyp of colon; D12.3 Benign neoplasm of transverse colon; K29.50 Unspecified chronic gastritis without bleeding; K44.9 Diaphragmatic hernia without obstruction or gangrene; Z79.82 Long term (current) use of aspirin; I25.10 Atherosclerotic heart disease of native coronary artery without angina pectoris; E11.9 Type 2 diabetes mellitus without complications; E78.5 Hyperlipidemia, unspecified; I10 Essential (primary) hypertension; M79.7 Fibromyalgia; Z95.5 Presence of coronary angioplasty implant and graft; I25.2 Old myocardial infarction
CPT/HCPCS: 36416; 43239; 45380; 45385; 82962; 88305; 88342; J2704; J7030

== ENCOUNTER → 2024-12-20 11:56 | Outpatient (BNVA) | payer MEDICARE, OTHER, SELFPAY | PROVIDERS: PCP Nurse Practitioner Family; Visit Provider Internal Medicine | DX: I25.10 Atherosclerotic heart disease of native coronary artery without angina pectoris (principal); I10 Essential (primary) hypertension; E66.9 Obesity, unspecified; Z68.37 Body mass index [BMI] 37.0-37.9, adult; E78.5 Hyperlipidemia, unspecified; E11.9 Type 2 diabetes mellitus without complications; Z95.5 Presence of coronary angioplasty implant and graft | CPT/HCPCS: 99213; 99214 ==

== ENCOUNTER 2025-01-26 07:02 | Outpatient (CLI) | payer MEDICARE, OTHER, SELFPAY ==
--- NOTE | 2025-01-26 07:14 | MR_ITS ---
WS: [id number] MRI HEAD WITH CONTRAST TECHNIQUE: Sagittal T1, T2 axial, T2 axial FLAIR, axial susceptibility weighted imaging, axial diffusion weighted images, and coronal T2 images were obtained. Pre and post-T1 axial and post T1 coronal images. ADC and FSPGR images. CLINICAL INFORMATION: follow up prior MR COMPARISON: MRI 06/03/2024 FINDINGS: Stable dense hyperostosis frontalis with stable enhancing bony lesions unchanged. Favor benign etiologies such as atypical hemangiomas or venous lakes. No other suspicious findings. No evidence of restricted diffusion to suggest acute ischemia. Ventricular system and basilar cisterns are patent. Moderate to advanced small vessel changes. Mild parenchymal volume loss. Tiny chronic lacunar infarct RIGHT cerebellum. Normal vascular flow voids at the skull base. No extra-axial fluid c ollections. Paranasal sinuses are well aerated. MR/MR head wo/w con [id number] IMPRESSION: 1. Stable dense hyperostosis frontalis with stable enhancing bony lesions enti rely unchanged. This is most likely benign etiology such as atypical hemangioma or venous lakes and probably incidental. 2. No other significant changes
[2025-01-26] MEDS: gadobenate dimeglumine 20 mL vial IV (07:41)
== END 2025-01-26 07:03 | disposition home or self-care (01) ==
LOC: RAD 07:02
PROVIDERS: PCP Nurse Practitioner Family; Visit Provider Surgery
DX: M85.2 Hyperostosis of skull (principal); R51.9 Headache, unspecified; M54.12 Radiculopathy, cervical region; Z98.1 Arthrodesis status
CPT/HCPCS: 70553; A9577

== ENCOUNTER 2025-03-02 12:38 | Outpatient (CLI) | payer MEDICARE, OTHER, SELFPAY ==
--- NOTE | 2025-03-02 12:40 | MM_ITS ---
WS: [id number] BILATERAL SCREENING DIGITAL TOMOSYNTHESIS MAMMOGRAM WITH CAD HISTORY: SCREENING COMPARISON: 02/26/2024, 08/22/2022, 09/15/2017, 11/03/2018 Bilateral CC and MLO views with tomosynthesis and synthetic mammography submitted. Computer aided detection analyzed. Breast composition: The breasts are heterogeneously dense, which may obscure small masses. No suspicious masses, microcalcifications or architectural distortion. Numerous asymmetries and calcifications within each breast. MM/MM scr tomosynthesis [id number] IMPRESSION: BI-RADS: 2 - Benign FOLLOW UP: 1 Year Follow-up
== END 2025-03-02 12:39 | disposition home or self-care (01) ==
LOC: MOBLMAM 12:41
PROVIDERS: PCP Nurse Practitioner Family; Visit Provider Nurse Practitioner Family
DX: Z12.31 Encounter for screening mammogram for malignant neoplasm of breast (principal); R92.333 Mammographic heterogeneous density, bilateral breasts; N64.89 Other specified disorders of breast
CPT/HCPCS: 77063; 77067